=== PATIENT | female | born 2000 | race African-American/Black ===

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

== ENCOUNTER → 2020-04-29 14:51 | Outpatient (CLI) | payer OTHER, SELFPAY ==
[2020-04-26 12:42] LABS: Erythrocyte Sedimentation Rate 13 mm/hr (0-20)
[2020-04-26 12:44] LABS: Absolute Neutrophil Count 4.9 X10^3/uL (2.0-7.7); Basophil# 0.05 X10^3/uL; Basophil% 0.6 % (0-1); Eosinophils% 2.5 % (0-5); Hematocrit 41.9 % (37-47); Hemoglobin 14.5 g/dL (12.0-15.0); Lymphocyte % 29.7 % (19-41); Mean Corp Hgb Conc 34.6 g/dL (32-36); Mean Corpuscular Hgb 30.2 pg (27.0-32.0); Mean Corpuscular Volume 87.3 fL (81-99); Mean Platelet Vol. 10.4 fl (6.2-12.0); Monocyte# 0.45 X10^3/uL; Monocyte% 5.6 % (0-10); NRBC Flagged by Analyzer 0 % (0-5); Neutrophil # 4.93 X10^3/uL (2.7-7.7); Neutrophil % 61.1 % (47-70); Platelet Count 304 K/mm3 (150-450); RBC Distribution Width CV 12.7 % (11.6-14.6); RBC Distribution Width SD 39.5 fl (35.1-43.9); White Blood Count 8.1 K/mm3 (4.4-11.0)
[2020-04-26 13:11] LABS: Vitamin B12 327 pg/mL (211-911); Vitamin D,25 Hydroxy 11.2 ng/mL
[2020-04-26 13:21] LABS: ALB/GLOB Ratio 0.8 RATIO (0.9-2.4); AST(SGOT) 15 U/L (15-37); Alanine Aminotransfer ALT/SGPT 18 U/L (13-56); Albumin, Serum 3.3 g/dL (3.2-5.0); Alkaline Phosphatase 118 U/L (45-117); Anion Gap 8 (5-15); BUN 9 mg/dL (7-18); BUN/Creat Ratio 13.1 RATIO (10-20); Calcium,Total 8.4 mg/dL (8.5-10.1); Chloride 103 mmol/L (98-107); Creatinine, Serum 0.69 mg/dL (0.55-1.02); EST Glomerular Filtration Rate 114 mL/min (>60); Est Glom Filt Rate - Afr Amer 138 mL/min (>60); Ferritin 13 ng/mL (8-252); Glucose 89 mg/dL (74-106); Iron 50 ug/dL (50-170); Iron Binding Capacity,Total 462 ug/dL (250-450); PERCENT IRON SATURATION 10.8 % (15.0-55.0); Potassium 3.8 mmol/L (3.5-5.1); Protein, Total 7.3 g/dL (6.4-8.2); Sodium Level 137 mmol/L (136-145)
--- NOTE | 2020-04-29 15:02 | CT_ITS ---
STUDY: CT ABDOMEN AND PELVIS WITH CONTRAST REASON FOR EXAM: Female, 20 years old. ABD PAIN, CHRONS RADIATION DOSAGE (If Supplied By Facility): CTDIvol = ( 14.85 ) mGy, DLP = ( 809.29 ) mGycm TECHNIQUE: Transaxial images were obtained from the dome of the diaphragm to the symphysis pubis with oral contrast. Oral and amp; IV Readi-CAT and amp; 100mL Isovue-370 was administered. Sagittal and coronal images were reconstructed. Individualized dose optimization techniques were used for this CT. COMPARISON: None. FINDINGS: The visualized lung bases are unremarkable. The visualized portions of the heart are within normal limits. Normal liver. Normal gallbladder and extrahepatic biliary system. Normal spleen. Normal pancreas. Normal bilateral adrenal glands. Normal right kidney. Normal left kidney. Normal visualized stomach. Wall thickening of the terminal ileum with stranding of surrounding fat consistent with known Crohn''s disease. Mild dilatation of the ileum just proximal to the inflamed segment consistent with pseudoobstruction. No loculated fluid collection to suggest abscess. No pneumoperitoneum to suggest perforation. Normal colon. The appendix is visualized and appears normal. Normal abdominal aorta. Normal inferior vena cava. Normal retroperitoneum. Normal urinary bladder. Normal abdominal wall. Normal osseous structures. CT/Abdomen/Pelvis WITH Contrast IMPRESSION: Known Crohn''s disease with the inflammation of the distal ileum with pseudoobstruction. No abscess or perforation. Electronically Signed: Daniel Hamilton MD at 17:16 EST Tel , Service support ,
== END ==
PROVIDERS: PCP Pediatrics; Referring Provider Internal Medicine Gastroenterology; Visit Provider Internal Medicine Gastroenterology
DX: K50.90 Crohn's disease, unspecified, without complications (principal); R14.0 Abdominal distension (gaseous); R19.4 Change in bowel habit; R19.7 Diarrhea, unspecified
CPT/HCPCS: 36415; 74177; 80053; 82306; 82607; 82728; 82746; 83540; 83550; 85025; 85652; 86140; Q9967

== ENCOUNTER → 2020-06-04 16:10 | Outpatient (CLI) | payer OTHER, SELFPAY ==
[2016-10-09 00:32] VITALS: BMI 21.6
--- NOTE | 2020-06-04 17:15 | RAD_ITS ---
HISTORY: cough, hx asthma. EXAM: XR Chest 2 Views: COMPARISON: None FINDINGS: # of images incl. paperwork: 2 Lungs are clear. Heart is not enlarged. No acute osseous pathology perceived. Pulmonary vascularity is distinct. No effusions. RAD/Chest PA and Lateral IMPRESSION: Normal. at 0656 Reported and signed by: Thierno Candelario MD Electronically Signed: Thierno Candelario MD at 6:55 EST Tel , Service support ,
[2020-06-07 09:46] LABS: Hepatitis B Surface Antibody Reactive; Hepatitis B Surface Antigen Non-Reactive (Nonreactive)
== END ==
PROVIDERS: PCP Pediatrics
DX: D64.9 Anemia, unspecified (principal); E73.9 Lactose intolerance, unspecified; K50.118 Crohn's disease of large intestine with other complication; R19.5 Other fecal abnormalities; R05 Cough
CPT/HCPCS: 36415; 71046; 86706; 87340

== ENCOUNTER → 2020-07-26 12:12 | Outpatient (CLI) | payer OTHER, SELFPAY ==
[2016-10-09 00:32] VITALS: BMI 21.6
[2020-07-26 14:16] LABS: Vitamin B12 304 pg/mL (211-911); Vitamin D,25 Hydroxy 32.7 ng/mL
[2020-07-26 14:26] LABS: Ferritin 8 ng/mL (8-252); Iron 108 ug/dL (50-170); Iron Binding Capacity,Total 549 ug/dL (250-450)
[2020-08-06 15:20] LABS: Hepatitis A AB, Total Negative (Negative); Vitamin A, Retinol 54.9 ug/dL (18.9-57.3)
== END ==
PROVIDERS: PCP Pediatrics; Referring Provider Internal Medicine Gastroenterology; Visit Provider Internal Medicine Gastroenterology
DX: K51.918 Ulcerative colitis, unspecified with other complication (principal); D64.9 Anemia, unspecified; E55.9 Vitamin D deficiency, unspecified
CPT/HCPCS: 36415; 82306; 82607; 82728; 82746; 83540; 83550; 84590; 86708

== ENCOUNTER → 2021-09-02 | Outpatient (CLI) | payer OTHER, SELFPAY ==
--- NOTE | 2021-09-02 16:36 | RAD_ITS ---
STUDY: PA AND LATERAL CHEST X-RAY SERIES OF 1634 HOURS ON 09/02/2021 REASON FOR EXAM: 21-year-old female with Crohn''s disease and has developed a cough. TECHNIQUE: A standard PA and lateral chest x-rays series was performed per protocol. COMPARISON: 06/04/2020. FINDINGS: The osseous and surrounding soft tissue structures, heart, aren, diaphragm, and lung are normal appearance. There is no evidence of a pneumonia, pneumonitis or bronchitis. There is no other evidence of active cardiopulmonary disease. There is no evidence of significant interval change since the previous study of 06/04/2020. RAD/Chest PA and Lateral IMPRESSION: 1. No active cardiopulmonary disease. 2. No pneumonia, pneumonitis or bronchitis. 3. No interval change since the previous study of 06/04/2020. Electronically Signed: Casey Hatfield MD at 17:59 EDT ,
[2021-09-02 17:09] LABS: Absolute Lymphocyte Count 3.31 X10^3/uL (0.83-4.51); Absolute Neutrophil Count 4.2 X10^3/uL (2.0-7.7); Basophil# 0.03 X10^3/uL; Basophil% 0.4 % (0-1); Eosinophil# 0.12 X10^3/uL; Eosinophils% 1.5 % (0-5); Hematocrit 45.4 % (37-47); Hemoglobin 15.9 g/dL (12.0-15.0); Lymphocyte # 3.31 X10^3/ul (0.83-4.51); Lymphocyte % 41.1 % (19-41); Mean Corpuscular Hgb 30.9 pg (27.0-32.0); Mean Corpuscular Volume 88.3 fL (81-99); Mean Platelet Vol. 11.5 fl (6.2-12.0); Monocyte# 0.36 X10^3/uL; Monocyte% 4.5 % (0-10); NRBC Flagged by Analyzer 0 % (0-5); Neutrophil # 4.23 X10^3/uL (2.7-7.7); Neutrophil % 52.4 % (47-70); Platelet Count 235 K/mm3 (150-450); RBC Distribution Width SD 41.9 fl (35.1-43.9); Red Blood Count 5.14 M/mm3 (4.2-5.4); White Blood Count 8.1 K/mm3 (4.4-11.0)
[2021-09-02 17:32] LABS: ALB/GLOB Ratio 1.4 RATIO (0.9-2.4); AST(SGOT) 18 U/L (15-37); Alanine Aminotransfer ALT/SGPT 20 U/L (13-56); Albumin, Serum 4.4 g/dL (3.2-5.0); Alkaline Phosphatase 81 U/L (45-117); Anion Gap 6 (5-15); BUN 8 mg/dL (7-18); BUN/Creat Ratio 10.9 RATIO (10-20); Calcium,Total 8.9 mg/dL (8.5-10.1); Chloride 102 mmol/L (98-107); Creatinine, Serum 0.73 mg/dL (0.55-1.02); EST Glomerular Filtration Rate 105 mL/min (>60); Est Glom Filt Rate - Afr Amer 127 mL/min (>60); Globulin 3.2 g/dL (2.2-4.2); Glucose 89 mg/dL (74-106); Iron 89 ug/dL (50-170); Iron Binding Capacity,Total 414 ug/dL (250-450); Potassium 3.8 mmol/L (3.5-5.1); Protein, Total 7.6 g/dL (6.4-8.2); Sodium Level 137 mmol/L (136-145)
[2021-09-05 08:58] LABS: Hepatitis B Surface Antibody Non-Reactive
[2021-09-05 09:47] LABS: Hepatitis A AB, Total Negative (Negative)
== END | disposition home or self-care (01) ==
LOC: LAB.FUTURE 10:51 → LAB 16:12
PROVIDERS: PCP Pediatrics; Visit Provider Internal Medicine Gastroenterology
DX: K50.819 Crohn's disease of both small and large intestine with unspecified complications (principal); E55.9 Vitamin D deficiency, unspecified; R05.9 Cough, unspecified
CPT/HCPCS: 36415; 71046; 80053; 83540; 83550; 85025; 86706; 86708

== ENCOUNTER 2021-09-13 13:00 | Emergency (ER) | payer OTHER, SELFPAY ==
[2021-09-13 13:01] VITALS: BP 115/82; PULSE 67; RESP 18; TEMP 36.2; O2SAT 98; BMI 22.1
[2021-09-13 13:36] LABS: Absolute Lymphocyte Count 2.42 X10^3/uL (0.83-4.51); Absolute Neutrophil Count 2.3 X10^3/uL (2.0-7.7); Basophil# 0.03 X10^3/uL; Basophil% 0.6 % (0-1); Eosinophil# 0.06 X10^3/uL; Eosinophils% 1.2 % (0-5); Hemoglobin 15.7 g/dL (12.0-15.0); Lymphocyte # 2.42 X10^3/ul (0.83-4.51); Lymphocyte % 47.2 % (19-41); Mean Corp Hgb Conc 35.7 g/dL (32-36); Mean Corpuscular Hgb 31.2 pg (27.0-32.0); Mean Corpuscular Volume 87.3 fL (81-99); Mean Platelet Vol. 11.4 fl (6.2-12.0); Monocyte# 0.28 X10^3/uL; Monocyte% 5.5 % (0-10); NRBC Flagged by Analyzer 0 % (0-5); Neutrophil # 2.34 X10^3/uL (2.7-7.7); Neutrophil % 45.5 % (47-70); Platelet Count 207 K/mm3 (150-450); RBC Distribution Width CV 12.6 % (11.6-14.6); RBC Distribution Width SD 39.5 fl (35.1-43.9); Red Blood Count 5.04 M/mm3 (4.2-5.4); White Blood Count 5.1 K/mm3 (4.4-11.0)
[2021-09-13 13:38] LABS: Internal QC Validated? YES +Cl - CLEAR BKGD; Pregnancy, Serum, hCG Quali. NEGATIVE Negative
[2021-09-13 13:42] LABS: Anion Gap 7 (5-15); BUN 13 mg/dL (7-18); BUN/Creat Ratio 17.4 RATIO (10-20); Calcium,Total 9.2 mg/dL (8.5-10.1); Chloride 105 mmol/L (98-107); Creatinine, Serum 0.75 mg/dL (0.55-1.02); EST Glomerular Filtration Rate 102 mL/min (>60); Est Glom Filt Rate - Afr Amer 124 mL/min (>60); Estimated Creatinine Clearance 110.14 ml/min; Glucose 89 mg/dL (74-106); Potassium 3.9 mmol/L (3.5-5.1); Sodium Level 138 mmol/L (136-145)
--- NOTE | 2021-09-13 13:59 | CT_ITS ---
STUDY: CT ABDOMEN AND PELVIS WITH CONTRAST REASON FOR EXAM: Female, 21 years old. abd pain -- IV PO Contrast RADIATION DOSAGE (If Supplied By Facility): CTDIvol = ( 10.45 ) mGy, DLP = ( 511.23 ) mGycm TECHNIQUE: Transaxial images were obtained from the dome of the diaphragm to the symphysis pubis without oral contrast. Oral and amp; IV Gastrografin and amp; 100mL Isovue-300 was administered. Sagittal and coronal images were reconstructed. Individualized dose optimization techniques were used for this CT. COMPARISON: 04/29/2020 FINDINGS: The visualized lung bases are unremarkable. The visualized portions of the heart are within normal limits. Mild nonspecific fatty infiltrated liver with focal fatty sparing in left lobe.. Contracted thick-walled gallbladder without calcified stones possibly physiologic. If concern for gallbladder disease ultrasound recommended. Normal spleen. Normal pancreas. Normal bilateral adrenal glands. Normal right kidney. Normal left kidney. Normal visualized stomach. No evidence for small bowel obstruction. There is diffuse concentric thickening of the larsen of the distal ileum consistent with ileitis of Crohn''s disease. Submucosal fat deposition within the cecum and proximal ascending colon which also may be due to Crohn''s disease.. The appendix is visualized and appears normal. Normal abdominal aorta. Normal inferior vena cava. Normal retroperitoneum. Normal urinary bladder. Normal abdominal wall. Normal osseous structures. CT/Abdomen/Pelvis WITH Contrast IMPRESSION: Findings consistent with terminal ileitis due to known Crohn''s disease. No evidence for small bowel obstruction Contracted thick-walled gallbladder without calcified stones possibly physiologic however if concern for gallbladder disease ultrasound recommended. Electronically Signed: Diogenes López MD at 16:58 EDT ,
--- NOTE | 2021-09-13 14:00 | EDS_ITS ---
HPI History of Present Illness Chief Complaint: Abd Pain Informant: patient Onset/Context/Timing Onset: Today Narrative Narrative: Patient presents secondary to abdominal pain and nausea. She is a history of Crohn's disease and follows with a GI doctor in [place]. She has been on Humira for about a year. She reports increasing intermittent abdominal pain for the last several weeks with intermittent nausea. No fever or chills. She called her GI doctor who recommended she come in for lab work and a CT scan. [facility] Medical History Crohn's disease Home Medications Mesalamine 2 tab PO BID 10/09/16 [History Last Taken Unknown] amoxicillin 500 mg PO Q8H #30 capsule 10/09/16 [Rx Last Taken Unknown] cetirizine [Zyrtec] 10 mg PO DAILY 10/09/16 [History Last Taken Unknown] Allergy/AdvReac Type Severity Reaction Status Date / Time Latex, Natural Rubber Allergy Rash Verified 09/13/21 13:04 environmental Allergy Other Uncoded 09/13/21 13:04 Social History Smoking Status: Never smoker ROS ROS ED Constitutional Constitutional ED: Denies chills or fever(s) Eyes Eyes: Denies change in vision ENT ENT ED: Denies sore throat Cardiovascular Cardiovascular: Denies chest pain Respiratory/Chest Respiratory/Chest: Denies cough or dyspnea Gastrointestinal Gastrointestinal: Denies abdominal pain, nausea or vomiting Genitourinary Genitourinary ED: Denies dysuria Musculoskeletal Musculoskeletal: Denies back pain or neck pain Integumentary Denies rash Neurologic Neurologic: Denies headache(s) or weakness Allergic/Immunologic Allergic/Immunologic ED: Denies urticaria EXAM Physical Exam Const Vital Signs: 09/13/21 13:01 09/13/21 15:43 Temperature 97.2 F L Temperature Source Temporal Pulse Rate 67 Respiratory Rate 18 Blood Pressure 115/82 H 110/70 Blood Pressure Mean 93 83 Pulse Ox 98 100 Oxygen Delivery Method Room Air Room Air Positive well nourished and well developed General Appearance ED: well developed HEENT Reports moist mucous membranes Eyes PERRL and EOMs intact bilaterally Neck no lymphadenopathy and supple Chest Wall inspection of chest normal and palpation of chest normal Resp normal respiratory effort and clear to auscultation bilaterally Cardio regular rate and regular rhythm GI normal to inspection, nondistended, normoactive bowel sounds and non-tender Palpation: soft Extremity normal to inspection Neuro oriented x3 Sensorium / Orientation: alert Psych mental status grossly normal Skin no rashes or lesions noted MDM MDM MDM Narrative Medical decision making narrative: Lab work obtained via nursing protocol. At the time of my examination CT scan is added. Lab Data Attestation: I reviewed the patient's lab results. Labs: Laboratory Results - last 24 hr 09/13/21 09/13/21 09/13/21 13:23 13:23 13:23 WBC 5.1 RBC 5.04 Hgb 15.7 H Hct 44.0 MCV 87.3 MCH 31.2 MCHC 35.7 RDW Std Deviation 39.5 RDW Coeff of Jinny 12.6 Plt Count 207 MPV 11.4 Immature Gran % (Auto) 0.000 Neut % (Auto) 45.5 L Lymph % (Auto) 47.2 H Hutch[place] % (Auto) 5.5 Eos % (Auto) 1.2 Baso % (Auto) 0.6 Absolute Neuts (auto) 2.3 Absolute Lymphs (auto) 2.42 Nucleated RBC % 0 Sodium 138 Potassium 3.9 Chloride 105 Carbon Dioxide 26.0 Anion Gap 7 BUN 13 Creatinine 0.75 Estim Creat Clear Calc 110.14 Est GFR (MDRD) Af Amer 124 Est GFR (MDRD) Non-Af 102 BUN/Creatinine Ratio 17.4 Glucose 89 Calcium 9.2 Serum , Qual NEGATIVE Urine Color Urine Clarity Urine pH Ur Specific [place] Urine Protein Urine Glucose (UA) Urine Ketones Urine Occult Blood Urine Nitrite Urine Bilirubin Urine Urobilinogen Ur Leukocyte Esterase Urine RBC Urine WBC Ur Squamous Epith Cells Urine Bacteria Urine Mucus 09/13/21 14:25 WBC RBC Hgb Hct MCV MCH MCHC RDW Std Deviation RDW Coeff of Jinny Plt Count MPV Immature Gran % (Auto) Neut % (Auto) Lymph % (Auto) [place] % (Auto) Eos % (Auto) Baso % (Auto) Absolute Neuts (auto) Absolute Lymphs (auto) Nucleated RBC % Sodium Potassium Chloride Carbon Dioxide Anion Gap BUN Creatinine Estim Creat Clear Calc Est GFR (MDRD) Af Amer Est GFR (MDRD) Non-Af BUN/Creatinine Ratio Glucose Calcium Serum , Qual Urine Color Yellow Urine Clarity Clear Urine pH 7.0 Ur Specific [place] 1.010 Urine Protein Negative Urine Glucose (UA) Normal Urine Ketones Negative Urine Occult Blood Negative Urine Nitrite Negative Urine Bilirubin Negative Urine Urobilinogen Normal Ur Leukocyte Esterase 25 H Urine RBC 0 SEEN Urine WBC 0-5 SEEN Ur Squamous Epith Cells 0-5 SEEN Urine Bacteria 4+ Urine Mucus 0 SEEN Radiography Diagnostic Testing: Clinical Impression(s) from Imaging Studies Abdomen/Pelvis CT 09/13/21 13:59 IMPRESSION: Findings consistent with terminal ileitis due to known Crohn''s disease. No evidence for small bowel obstruction Contracted thick-walled gallbladder without calcified stones possibly physiologic however if concern for gallbladder disease ultrasound recommended. Electronically Signed: Diogenes López MD at 16:58 EDT , Treatment and Re-Evaluation Narrative: Lab work unremarkable. Urinalysis shows 4+ bacteria but no sign of i nfection otherwise. CT scan with contrast is obtained and reveals evidence of terminal ileitis due to known Crohn's disease. No evidence for obstruction. They do comment about a thick-walled gallbladder that is contracted, however patient has no tenderness in this area. I did speak with the patient's GI doctor, Dr. Caraballo. He did not wish for any other medications to be given at this time. Continue her current regimen and follow-up in the office. Discharge Plan Triage Chief Complaint: Abd Pain ED Provider: Simran Wynne Dx/Rx/DC Orders Clinical Impression: Crohn's disease, Terminal ileitis Instructions: ED Crohn's Disease Prescriptions: No Action cetirizine [Zyrtec] 10 MG capsule 10 mg PO DAILY RF: 0 Mesalamine 800 MG Tablet.Dr 2 tab PO BID RF: 0 amoxicillin 500 MG capsule 500 mg PO Q8H Qty: 30 RF: 0 Primary Care Provider: Care Physician,No Primary Referrals: Care Physician,No Primary [Primary Care Provider] - Activity Restrictions/Additional Instructions: Follow-up with Dr. Caraballo as planned. I did speak with him this evening. He does not wish for any medication changes at this time. Disposition Disposition: Home, Self Care
[2021-09-13 15:00] LABS: Mucous, Urine 0 SEEN /hpf (<or=2+); Red Blood Cells-Urine 0 SEEN /hpf (0-5)
[2021-09-13 15:01] LABS: Color, Urine Yellow (Yellow); Glucose, Dipstick Normal (Normal); Ketone-Dipstick Negative (Negative); Leukocyte Esterase-Dipstick 25 /ul (Negative); Nitrite-Dipstick Negative (Negative); Occult Blood-Urine Negative /ul (Negative); Protein-Dipstick Negative (Negative); Urine Bilirubin Dipstick Negative (Negative); Urine Clarity Clear (Clear); Urine Urobilinogen Normal (Normal)
[2021-09-13 15:43] VITALS: BP 110/70; O2SAT 100
[2021-09-13 15:53] LABS: Bacteria 4+ /hpf (None Seen); Squamous Epithelial Cells - UA 0-5 SEEN /hpf (5-10); White Blood Cells 0-5 SEEN /hpf (0-5)
--- NOTE | 2021-09-13 17:36 | CM.ED ---
Social Work Note SW reviewed chart, pt has no PCP. SW attempted to meet with pt. Pt has already been discharged. Angie Galdamez JOINERY SETTER OUT, SQL DEVELOPER
== END 2021-09-13 17:36 | disposition home or self-care (01) ==
PROVIDERS: Emergency Provider Emergency Medicine; Visit Provider Emergency Medicine
DX: K50.00 Crohn's disease of small intestine without complications (principal)
CPT/HCPCS: 74177; 80048; 81001; 84703; 85025; 99282; Q9967; A4216

== ENCOUNTER 2022-08-17 11:08 | Emergency (ER) | payer OTHER, SELFPAY ==
[2022-08-17 11:09] VITALS: BP 114/67; PULSE 67; RESP 16; TEMP 37.4; O2SAT 98; BMI 22.0
--- NOTE | 2022-08-17 11:31 | ED.VIS.GI ---
HPI HPI - GI History of Present Illness Chief Complaint: Abd Pain Informant: patient Narrative Narrative: This patient has Crohn's disease. She presents with nausea vomiting diarrhea. This really started this morning. She had some dry heaves and brought up just a small amount of what she describes as stomach acid. She also had watery diarrhea. No blood in either 1 of these. She states she has had nausea for about the past year but really does not normally vomit like this. She does not usually have diarrhea despite having Crohn's. She is on Humira. She is transitioning from a perinatal specialist in [place] to Dr. Almanzar locally. Last EGD was about 2 months ago. Last colonoscopy was over a year ago. One of her concerns is that she does not develop an obstruction. She has not had 1. She has no history of abdominal surgery. She sometimes gets pain down the left lower quadrant but she is not actually having pain now. No fevers or chills. PFSH PFSH Medical History Anxiety and depression Asthma Atopic eczema Crohn's disease Idiopathic colitis Home Medications cetirizine 10 mg capsule (Zyrtec) 10 mg PO DAILY 10/09/16 [History Last Taken Unknown] adalimumab 40 mg/0.8 mL subcutaneous pen kit (Humira Pen) See Rx Instructions subcut .COMPLEX 08/15/22 [History Last Taken Unknown] bupropion HCl 75 mg tablet 75 mg PO BID 08/15/22 [History Last Taken Unknown] escitalopram oxalate 10 mg tablet (Lexapro) 10 mg PO DAILY 08/15/22 [History Last Taken Unknown] fluticasone propionate 50 mcg/actuation nasal spray,suspension 1 spray intranasal DAILY 08/15/22 [History Last Taken Unknown] mesalamine 0.375 gram capsule,extended release 24 hr 1.5 g PO DAILY 08/15/22 [History Last Taken Unknown] ondansetron 4 mg disintegrating tablet 4 mg PO Q8H PRN PRN Nausea #10 tabs 08/17/22 [Rx Last Taken Unknown] Allergy/AdvReac Type Severity Reaction Status Date / Time Environmental Allergies: Allergy NEEDS Verified 08/17/22 11:11 Uncoded FOLLOW-UP Latex, Natural Rubber Allergy Rash Verified 08/17/22 11:11 Family History Sister PCOS (polycystic ovarian syndrome) Surgical History H/O tympanostomy Social History Smoking Status: Never smoker alcohol intake: never ROS ROS ED ROS Narrative A complete review of systems was performed and is negative except as documented in the history of present illness. Some specific details below. Constitutional: No recent fevers or chills. EYE: No visual complaints or pain. ENT: No difficulty swallowing. No swelling. No pain. Her appetite has not been good but she still has been able to eat and drink. She has been drinking plenty of fluids. CV: No chest pain or palpitations. Respiratory: No dyspnea. No hemoptysis. No difficulty taking breaths. GI: Please see history of present illness. : No frequency dysuria or hematuria. No urinary symptoms at all. Musculoskeletal: No recent trauma. No pains. Skin: No rash. Nondiaphoretic. Neuro: No weakness or numbness. Endocrine: No polyuria or polydipsia. EXAM Physical Exam Narrative Exam Narrative: CONSTITUTIONAL: Patient is nontoxic in appearance. The patient looks comfortable. Sitting quietly in the bed carries on normal conversation. HEENT: No notable trauma. Mucous membranes moist. EYES: No conjunctival injection. No proptosis. CARDIOVASCULAR: Regular rate. Regular rhythm. No notable murmur. No JVD. RESPIRATORY: No respiratory distress. Breathing is unlabored. No wheezes. No rhonchi. No rales. No pain with a deep breath. GASTROINTESTINAL: Not distended. Bowel sounds are normal. They are not increased or decreased. No tenderness. No guarding. No rebound. No palpable mass. No bruit. Clinically no indication of obstruction on exam. GENITOURINARY: No tenderness over the bladder. No CVA tenderness. MUSCULOSKELETAL: Atraumatic. No peripheral edema. No cord. No tenderness along the deep venous system. No asymmetry. NEUROLOGICAL: Patient is alert and appropriate. No focal deficit noted. SKIN: No noted rashes. No diaphoresis. PSYCHIATRIC: Patient is calm. Mood is appropriate. Const Vital Signs: 08/17/22 11:09 08/17/22 13:09 Temperature 99.4 F H Temperature Source Temporal Pulse Rate 67 84 Respiratory Rate 16 16 Blood Pressure 114/67 112/62 Blood Pressure Mean 82 78 Pulse Ox 98 99 Oxygen Delivery Method Room Air Room Air MDM MDM MDM Narrative Medical decision making narrative: Independent interpretation of the patient's 4 view abdominal series shows no acute process. Final reading by radiology is similar. Patient has minimal elevation of the hemoglobin which may be some mild dehydration. She is given IV fluids. White count is normal. Electrolytes are overall normal. Liver function tests do show elevated bilirubin but other tests are unchanged. This is a little bit trending up slowly. This does need to be followed up but I do not think requires admission or treatment at this point. This may even be medication related. Patient is feeling well. I do not think there is any indication of obstruction. This may even be a viral issue that she has as she has not been having a lot of diarrhea. She has not had blood in the stool. She states she is on Nexium for the chronic nausea but does not take it because she has OCD and she does not want to take meds. I encouraged her to maybe take this medicine as it might help some chronic nausea by reducing acid irritation. I will write for some Zofran that can be used on a as needed basis. She will follow-up with Dr. Almanzar as scheduled as she is already contacted his office and having the records transferred to him for follow-up. We discussed that the patient develops pain (which she does not currently have), or recurrent vomiting fevers blood in the stool she may need to return. Lab Data Attestation: I reviewed the patient's lab results. Labs: Laboratory Results - last 24 hr 08/17/22 08/17/22 08/17/22 11:58 11:58 11:58 WBC 8.4 RBC 5.19 Hgb 16.4 H Hct 46.6 MCV 89.8 MCH 31.6 MCHC 35.2 RDW Std Deviation 39.2 RDW Coeff of Jinny 12.0 Plt Count 183 MPV 10.5 Immature Gran % (Auto) 0.200 Neut % (Auto) 87.2 H Lymph % (Auto) 8.8 L [place] % (Auto) 3.0 Eos % (Auto) 0.7 Baso % (Auto) 0.1 Absolute Neuts (auto) 7.3 Absolute Lymphs (auto) 0.74 L Nucleated RBC % 0 Sodium 134 L Potassium 3.5 Chloride 103 Carbon Dioxide 27.0 Anion Gap 4 L BUN 11 Creatinine 0.83 Estim Creat Clear Calc 98.68 Est GFR (MDRD) Af Amer 109 Est GFR (MDRD) Non-Af 90 BUN/Creatinine Ratio 13.3 Glucose 92 Calcium 9.3 Total Bilirubin 2.90 H AST 19 ALT 32 Alkaline Phosphatase 82 Total Protein 8.9 H Albumin 5.0 Globulin 3.9 Albumin/Globulin Ratio 1.3 Serum , Qual NEGATIVE Urine Color Urine Clarity Urine pH Ur Specific [place] Urine Protein Urine Glucose (UA) Urine Ketones Urine Occult Blood Urine Nitrite Urine Bilirubin Urine Urobilinogen Ur Leukocyte Esterase Urine RBC Urine WBC Ur Squamous Epith Cells Ur Transition Epith Cell Urine Bacteria Urine Mucus 08/17/22 12:00 WBC RBC Hgb Hct MCV MCH MCHC RDW Std Deviation RDW Coeff of Jinny Plt Count MPV Immature Gran % (Auto) Neut % (Auto) Lymph % (Auto) [place] % (Auto) Eos % (Auto) Baso % (Auto) Absolute Neuts (auto) Absolute Lymphs (auto) Nucleated RBC % Sodium Potassium Chloride Carbon Dioxide Anion Gap BUN Creatinine Estim Creat Clear Calc Est GFR (MDRD) Af Amer Est GFR (MDRD) Non-Af BUN/Creatinine Ratio Glucose Calcium Total Bilirubin AST ALT Alkaline Phosphatase Total Protein Albumin Globulin Albumin/Globulin Ratio Serum , Qual Urine Color Yellow Urine Clarity Sl. Cloudy Urine pH 5.0 Ur Specific [place] 1.015 Urine Protein Negative Urine Glucose (UA) Normal Urine Ketones 5 H Urine Occult Blood Negative Urine Nitrite Negative Urine Bilirubin 1 H Urine Urobilinogen 1 H Ur Leukocyte Esterase Negative Urine RBC 0 SEEN Urine WBC 0 SEEN Ur Squamous Epith Cells 0-5 SEEN Ur Transition Epith Cell 0 SEEN Urine Bacteria RARE Urine Mucus RARE Radiography Diagnostic Testing: Clinical Impression(s) from Imaging Studies Acute Abdomen Series 08/17/22 12:18 IMPRESSION: Moderate amount of fecal material is seen in the colon. Electronically Signed: Fran Garrett MD at 12:45 EDT , Discharge Plan Triage Chief Complaint: Abd Pain ED Provider: Shadi Arriola Dx/Rx/DC Orders Clinical Impression: Nausea vomiting and diarrhea, History of Crohn's disease, Chronic nausea Instructions: ED Crohn's Disease Prescriptions: New ondansetron [ondansetron] 4 mg tablet,disintegrating 4 mg PO Q8H PRN PRN (Reason: Nausea) Qty: 10 0RF No Action bupropion HCl 75 mg tablet 75 mg PO BID Rx Instructions: administer 6 hours apart fluticasone propionate 50 mcg/actuation spray,suspension 1 spray intranasal DAILY Rx Instructions: administer into each nostril escitalopram oxalate [Lexapro] 10 mg tablet 10 mg PO DAILY Humira Pen 40 mg/0.8 mL pen injector kit See Rx Instructions subcut .COMPLEX Rx Instructions: inject one - 40 mg/0.8 mL pen every 2 weeks subcut mesalamine 0.375 gram capsule,extended release 24hr 1.5 g PO DAILY Zyrtec 10 MG capsule 10 mg PO DAILY Primary Care Provider: Mey Faustin Referrals: Otf Almanzar DO [Med Staff - Active Staff] - As soon as possible Mey Faustin MD [Primary Care Provider] - Disposition Disposition: Home, Self Care
[2022-08-17] MEDS: 0.9% Normal Saline 1,000 ML 1000 ML IV (12:06)
[2022-08-17 12:08] LABS: Absolute Lymphocyte Count 0.74 X10^3/uL (0.83-4.51); Absolute Neutrophil Count 7.3 X10^3/uL (2.0-7.7); Basophil# 0.01 X10^3/uL; Basophil% 0.1 % (0-1); Eosinophil# 0.06 X10^3/uL; Eosinophils% 0.7 % (0-5); Hematocrit 46.6 % (37-47); Hemoglobin 16.4 g/dL (12.0-15.0); Lymphocyte # 0.74 X10^3/ul (0.83-4.51); Lymphocyte % 8.8 % (19-41); Mean Corp Hgb Conc 35.2 g/dL (32-36); Mean Corpuscular Hgb 31.6 pg (27.0-32.0); Mean Corpuscular Volume 89.8 fL (81-99); Mean Platelet Vol. 10.5 fl (6.2-12.0); Monocyte# 0.25 X10^3/uL; NRBC Flagged by Analyzer 0 % (0-5); Neutrophil # 7.29 X10^3/uL (2.7-7.7); Neutrophil % 87.2 % (47-70); Platelet Count 183 K/mm3 (150-450); RBC Distribution Width SD 39.2 fl (35.1-43.9); Red Blood Count 5.19 M/mm3 (4.2-5.4); White Blood Count 8.4 K/mm3 (4.4-11.0)
[2022-08-17 12:14] LABS: Red Blood Cells-Urine 0 SEEN /hpf (0-5); White Blood Cells 0 SEEN /hpf (0-5)
[2022-08-17 12:16] LABS: Color, Urine Yellow (Yellow); Glucose, Dipstick Normal (Normal); Ketone-Dipstick 5 mg/dl (Negative); Leukocyte Esterase-Dipstick Negative /ul (Negative); Nitrite-Dipstick Negative (Negative); Occult Blood-Urine Negative /ul (Negative); Protein-Dipstick Negative (Negative); Specific Gravity, Urine 1.015 (1.002-1.030); Urine Clarity Sl. Cloudy (Clear); Urine Urobilinogen 1 mg/dl (Normal)
--- NOTE | 2022-08-17 12:18 | RAD_ITS ---
STUDY: X-RAY - ACUTE ABDOMINAL SERIES REASON FOR EXAM: Female, 22 years old. N V D TECHNIQUE: Single view of the chest. Supine, and erect view(s) of the abdomen were obtained. COMPARISON: Comparison is made with prior chest radiograph dated September 02, 2021. FINDINGS: The lungs are clear and expanded. Normal size heart. Normal mediastinum and aren. Normal visualized pulmonary arteries. Normal visualized aortic arch and descending thoracic aorta. There is a moderate amount of colonic fecal material. The soft tissue structures of the abdomen and pelvis are unremarkable. Normal visualized osseous structures. RAD/Acute Abdomen Inc Chest IMPRESSION: Moderate amount of fecal material is seen in the colon. Electronically Signed: Fran Garrett MD at 12:45 EDT ,
[2022-08-17 12:19] LABS: Urine Bilirubin Dipstick 1 mg/dL (Negative)
[2022-08-17 12:22] LABS: Bacteria RARE /hpf (None Seen); Mucous, Urine RARE /hpf (<or=2+); Squamous Epithelial Cells - UA 0-5 SEEN /hpf (5-10); Transitional Epithelial - Ur 0 SEEN /hpf (0-5)
[2022-08-17 12:23] LABS: ALB/GLOB Ratio 1.3 RATIO (0.9-2.4); AST(SGOT) 19 U/L (15-37); Alanine Aminotransfer ALT/SGPT 32 U/L (13-56); Alkaline Phosphatase 82 U/L (45-117); Anion Gap 4 (5-15); BUN 11 mg/dL (7-18); BUN/Creat Ratio 13.3 RATIO (10-20); Calcium,Total 9.3 mg/dL (8.5-10.1); Chloride 103 mmol/L (98-107); Creatinine, Serum 0.83 mg/dL (0.55-1.02); EST Glomerular Filtration Rate 90 mL/min (>60); Est Glom Filt Rate - Afr Amer 109 mL/min (>60); Estimated Creatinine Clearance 98.68 ml/min; Globulin 3.9 g/dL (2.2-4.2); Glucose 92 mg/dL (74-106); Potassium 3.5 mmol/L (3.5-5.1); Protein, Total 8.9 g/dL (6.4-8.2); Sodium Level 134 mmol/L (136-145)
[2022-08-17 12:36] LABS: Internal QC Validated? YES +Cl - CLEAR BKGD; Pregnancy, Serum, hCG Quali. NEGATIVE Negative
[2022-08-17 13:09] VITALS: BP 112/62; PULSE 84; RESP 16; O2SAT 99
== END 2022-08-17 15:12 | disposition home or self-care (01) ==
PROVIDERS: Emergency Provider Emergency Medicine; PCP Internal Medicine; Visit Provider Emergency Medicine
DX: R11.2 Nausea with vomiting, unspecified (principal); K50.90 Crohn's disease, unspecified, without complications; R19.7 Diarrhea, unspecified; F42.9 Obsessive-compulsive disorder, unspecified; F32.A Depression, unspecified; Z79.899 Other long term (current) drug therapy
CPT/HCPCS: 74022; 80053; 81001; 84703; 85025; 99283; J2405

== ENCOUNTER 2022-09-13 15:17 | Outpatient (CLI) | payer OTHER, SELFPAY ==
[2022-09-13 16:13] LABS: Absolute Lymphocyte Count 2.91 X10^3/uL (0.83-4.51); Absolute Neutrophil Count 3.6 X10^3/uL (2.0-7.7); Basophil# 0.03 X10^3/uL; Basophil% 0.4 % (0-1); Eosinophil# 0.05 X10^3/uL; Eosinophils% 0.7 % (0-5); Hematocrit 40.1 % (37-47); Hemoglobin 13.6 g/dL (12.0-15.0); Lymphocyte # 2.91 X10^3/ul (0.83-4.51); Lymphocyte % 41.7 % (19-41); Mean Corp Hgb Conc 33.9 g/dL (32-36); Mean Corpuscular Hgb 31.2 pg (27.0-32.0); Mean Platelet Vol. 11.1 fl (6.2-12.0); Monocyte% 5.7 % (0-10); NRBC Flagged by Analyzer 0 % (0-5); Neutrophil # 3.58 X10^3/uL (2.7-7.7); Neutrophil % 51.4 % (47-70); Platelet Count 206 K/mm3 (150-450); RBC Distribution Width CV 12.4 % (11.6-14.6); RBC Distribution Width SD 41.6 fl (35.1-43.9); Red Blood Count 4.36 M/mm3 (4.2-5.4)
[2022-09-13 16:20] LABS: Erythrocyte Sedimentation Rate 3 mm/hr (0-30)
[2022-09-13 17:14] LABS: ALB/GLOB Ratio 1.2 RATIO (0.9-2.4); AST(SGOT) 14 U/L (15-37); Alanine Aminotransfer ALT/SGPT 19 U/L (13-56); Albumin, Serum 3.8 g/dL (3.2-5.0); Alkaline Phosphatase 73 U/L (45-117); Anion Gap 8 (5-15); BUN 8 mg/dL (7-18); BUN/Creat Ratio 12.9 RATIO (10-20); CRP < 2.90 mg/L (0.0-3.0); Calcium,Total 8.6 mg/dL (8.5-10.1); Chloride 108 mmol/L (98-107); Creatinine, Serum 0.62 mg/dL (0.55-1.02); EST Glomerular Filtration Rate 126 mL/min (>60); Est Glom Filt Rate - Afr Amer 152 mL/min (>60); Globulin 3.3 g/dL (2.2-4.2); Glucose 88 mg/dL (74-106); LDH 170 U/L (84-246); Potassium 3.5 mmol/L (3.5-5.1); Protein, Total 7.1 g/dL (6.4-8.2); Sodium Level 140 mmol/L (136-145)
[2022-09-13 18:51] LABS: Rubella IgG Reactive (Nonreactive)
[2022-09-15 15:08] LABS: Endomysial Antibody IgA Negative (Negative); Immunoglobulin A 186 mg/dL (87-352); t-Transglutaminase IgA <2 U/mL (0-3)
[2022-09-15 16:09] LABS: Anti-Centromere B Ab <0.2 AI (0.0-0.9); Anti-Chromatin <0.2 AI (0.0-0.9); Anti-Jo <0.2 AI (0.0-0.9); Anti-Mitochondrial AB <20.0 Units (0.0-20.0); Anti-Scleroderma-70 AB <0.2 AI (0.0-0.9); Anti-dsDNA Ab <1 IU/mL (0-9); RNP Ab 1.1 AI (0.0-0.9); SJOGREN'S Anti-SS-A test < 0.2 AI (0.0-0.9); SJOGREN'S Anti-SS-B test < 0.2 AI (0.0-0.9); Smith Ab <0.2 AI (0.0-0.9)
[2022-09-18 22:07] LABS: B. pertussis IgG < 0.95 index (0.00-0.94); HEPATITIS B SURFACE AG Negative (Negative); Hep C Antibodies Non Reactive (Non Reactive); Hepatitis A IgM Antibody Negative (Negative); Hepatitis B Core AB IgM Negative (Negative); Mumps Antibody, IgM < 0.80 AU (0.00-0.79); QNTFERON TB Mitogen Value > 10.00 IU/mL (.); QNTFERON TB Nil Value 0.06 IU/mL (.); QNTFERON TB1+ Ag Value 0.07 IU/mL (.); QNTFERON TB2+ Ag Value 0.06 IU/mL (.); QNTIFERON TB Positive Criteria Negative (Negative); V-Zoster IgG (Immunity) 144 index (Immune >165)
[2022-09-19 12:08] LABS: Beef <0.10 kU/L (Class 0); Chocolate <0.10 kU/L (Class 0); Corn <0.10 kU/L (Class 0); Milk (Cow) 0.14 kU/L (Class 0/I); Peanut <0.10 kU/L (Class 0); Pork <0.10 kU/L (Class 0); Soybean <0.10 kU/L (Class 0); Wheat <0.10 kU/L (Class 0)
[2022-09-19 13:08] LABS: Albumin 3.9 g/dL (2.9-4.4); Alpha-1-Globulins 0.2 g/dL (0.0-0.4); Alpha-2-Globulins 0.6 g/dL (0.4-1.0); Cytoplasmic Ab (C-ANCA) <1:20 titer (Neg:<1:20); Gamma Globulin 1.2 g/dL (0.4-1.8); Immunoglobulin A 180 mg/dL (87-352); Immunoglobulin E 71 IU/mL (6-495); Immunoglobulin G 1054 mg/dL (586-1602); Immunoglobulin M 66 mg/dL (26-217); Perinuclear Ab (P-ANCA) <1:20 titer (Neg:<1:20)
== END 2022-09-13 23:59 | disposition home or self-care (01) ==
PROVIDERS: PCP Internal Medicine; Referring Provider Internal Medicine Gastroenterology; Visit Provider Internal Medicine Gastroenterology
DX: K50.90 Crohn's disease, unspecified, without complications (principal)
CPT/HCPCS: 36415; 80053; 80074; 82784; 82785; 83516; 83615; 84165; 85025; 85652; 86003; 86005; 86140; 86225; 86235; 86255; 86256; 86334; 86480; 86615; 86735; 86762; 86787

== ENCOUNTER → 2022-09-14 | Outpatient (CLI) | payer OTHER, SELFPAY ==
[2022-09-19 14:09] LABS: Pancreatic Elastase, Fecal 471 (>200)
[2022-09-28 01:07] LABS: Calprotectin, Stool 34 ug/g (0-120); Fats, Neutral Normal (.); Fats, Total Increased (.)
== END | disposition home or self-care (01) ==
PROVIDERS: PCP Internal Medicine; Referring Provider Internal Medicine Gastroenterology; Visit Provider Internal Medicine Gastroenterology
DX: K50.90 Crohn's disease, unspecified, without complications (principal)
CPT/HCPCS: 82274; 82653; 82705; 83630; 83993; 87177; 87209; 87329; 87493; 87506

== ENCOUNTER → 2022-10-02 | Outpatient (CLI) | payer OTHER, SELFPAY ==
--- NOTE | 2022-10-02 11:40 | MRI_ITS ---
MR Enterography Abdomen/Pelvis W/ Contrast 10/02/2022 12:57 PM COMPARISON: CT 09/13/2021 CLINICAL HISTORY: K50.90 - Crohn''s disease, unspecified, without complications MR enterography TECHNIQUE: Following oral administration of enteric contrast and administration of glucagon, multiplanar T1 and T2 weighted images along with dynamic post-gadolinium images were obtained through the abdomen and pelvis. FINDINGS: GI Tract: There is circumferential wall thickening of the terminal ileum with minimal mucosal hyperenhancement. There is also minimal mucosal hyperenhancement of several proximal small bowel loops. No stricture, fistula, or obstruction. No drainable fluid collections. Liver: Unremarkable Gallbladder: Unremarkable Spleen: Unremarkable Pancreas: Unremarkable Adrenal Glands: Unremarkable Kidneys: Unremarkable Bladder: Unremarkable Reproductive: Unremarkable Lymphadenopathy: Absent Ascites: Absent Bones: No suspicious lesions MRI/Enterography Abd/Pel IMPRESSION: Findings consistent with known Crohn''s disease. No stricture, fistula, or obstruction. No drainable fluid collections. Electronically Signed: Chris Calle MD at 19:35 EDT ,
[2022-10-02 12:18] VITALS: BP 121/77; PULSE 63; RESP 14; TEMP 36.4; O2SAT 97; BMI 23.1
[2022-10-02] MEDS: Glucagon 1 MG/ML Syringe IV (13:34)
[2022-10-02 14:05] VITALS: BP 114/72; PULSE 74; RESP 16; O2SAT 100
== END | disposition home or self-care (01) ==
LOC: MRI 11:36
PROVIDERS: PCP Internal Medicine; Referring Provider Internal Medicine Gastroenterology; Visit Provider Internal Medicine Gastroenterology
DX: K50.90 Crohn's disease, unspecified, without complications (principal)
CPT/HCPCS: 74183; 96374; A9575; A4216

== ENCOUNTER → 2022-10-04 | Outpatient (CLI) | payer OTHER, SELFPAY ==
--- NOTE | 2022-10-04 10:13 | NM_ITS ---
CLINICAL: 22-year-old female with history of clinical gastroparesis. SEMI-SOLID PHASE 99m Tc SULFUR COLLOID GASTRIC EMPTYING STUDY COMPARISON: None available FINDINGS: The patient was administered 1.1 mCi of 99m Tc sulfur colloid mixed with oatmeal and consumed per os. Image acquisitions in the anterior-posterior projections were obtained for 60 minutes. There is prompt visualization of the stomach. There is no gastroesophageal reflux identified. First order kinetics are maintained throughout the duration of the acquisitions. The T ? linear fit was calculated to be 150.54 minutes, (Normal: 12-56 minutes). NM/Gastric Emptying Study IMPRESSION: 1. ABNORMAL 99m Tc sulfur colloid semi-solid phase (oatmeal) gastric emptying imaging examination. A. There is delayed semi-solid phase gastric emptying compared to normal controls with maintained first order kinetics throughout all components of the examination. (Azar et al, J Nucl Med Tech 38: 186, 2010). Electronically Signed: Daniel Gold, at 21:10 EDT ,
== END | disposition home or self-care (01) ==
LOC: NM 10:14
PROVIDERS: PCP Internal Medicine; Referring Provider Internal Medicine Gastroenterology; Visit Provider Internal Medicine Gastroenterology
DX: K50.90 Crohn's disease, unspecified, without complications (principal)
CPT/HCPCS: 78264; A9541

== ENCOUNTER 2022-10-24 11:28 | Day surgery (SDC) | payer OTHER, SELFPAY ==
--- NOTE | 2022-10-24 11:50 | HP.PCM_ITS ---
History and Physical Date of Admission: 10/24/22 22 F who presents to the office today for an initial consultation.? She has a pre-existing history of Crohn's disease and is on Humira every other week.? She is not steroid na?ve.? She has had a history of small bowel obstruction in the terminal ileum resulting in NG tube decompression.? She presented to the emergency room back in July 2022 with dry heaving.? She does use marijuana on a daily basis for anxiety and depression.? Previously she was put on Lexapro and Celexa for some anxiety and depression.? She also smokes cigarettes on a daily basis to relieve her anxiety.? When she presented to the emergency room she had multiple episodes of dry heaves accompanied by watery diarrhea.? She denied any bleeding, tenesmus or incontinence. Her current health informatics instructor was out of [place]. Her last EGD was about 2 months ago.? Last colonoscopy was over a year ago.? One of her concerns is that she does not develop an obstruction.? She has no history of abdominal surgery.? She sometimes gets pain down the left lower quadrant but she is not actually having pain now.? No fevers or chills. ROS Const Constitutional: No anorexia, fatigue, fever(s), weight change or sleep problems Eyes Eyes: No change in vision ENT ENT: No abnormal hearing, difficulty swallowing, mouth lesions, tongue swelling or throat swelling Resp Respiratory: No cough or shortness of breath Cardio Cardiology: No chest pain at rest, chest pain with exertion, shortness of breath or dyspnea on exertion Gastro GI: No difficulty swallowing Genitourinary-Female: No difficulty urinating or burning urination Musc Musculoskeletal: No joint pain, joint swelling, muscle weakness or decreased muscle mass Skin Skin: No hair loss in leg, yellowing of the eye, itchy eyes, rash, skin ulcer or skin swelling Neuro Neurology: No abnormal hearing, abnormal movements, confusion, unsteady gait/balance or memory loss Psych Psychiatric: No anxiety, No confusion and No memory loss Endo Endocrine: No fatigue or weight change Aller/Imm Allergy/Immunologic: No itchy eyes, throat swelling or tongue swelling [place]/Lymp Hematologic/Lymphatic: No easy bleeding, easy bruising or enlarged lymph nodes Exam Const General: cooperative and comfortable Nutritional Appearance: average body habitus and well nourished HENMT Head: normal to inspection Ears: hearing grossly normal bilaterally Nose: external nose normal Face and sinus: normal facial exam Mouth: oral mucosae normal Throat: posterior oropharynx normal Eyes General: appearance normal, both eyes and all related structures Neck Neck: normal visual inspection Chest Chest palpation & inspection: normal inspection of the chest and normal palpation of entire chest wall Resp Effort & Inspection: normal respiratory effort Auscultation: Bilateral: Clear to Auscultation Cardio Palpation: normal PMI Rate: regular rate Rhythm: regular rhythm GI Inspection: normal to inspection Auscultation: normal bowel sounds Percussion: normal to percussion Palpation: no hepatosplenomegaly Skin General: no rashes or lesions noted Neuro General: patient alert Extrem General: normal to inspection Psych Affect: normal affect Quality Reporting Tobacco Screening ([facility] 138) Smoking Status: Never smoker Assessment and Plan Assessment and Plan (1) Crohn's disease: ?Status:?Acute ?Plan: 22-year-old with history of ileocolonic Crohn's status post small bowel obstruction with NG tube decompression on Humira.? Recommend to check PPD, hepatitis B serologies.? Also recommend to check NIK, ANCA, QuantiFERON gold, adalimumab levels, adalimumab antibodies, MR enterography.? She will also need an upper lowered endoscopy for further staging purposes.? Once I have more information we able to make recommendations. I have examined the patient and the H&P has been reviewed. There are no clinical changes since date of exam. ? ? ? Orders: Orders Comprehensive Metabolic Profil 09/13/22 K50.90 - Crohn's disease, unspe cified, without complications ? CRP 09/13/22 K50.90 - Crohn's disease, unspe cified, without complications ? LDH 09/13/22 K50.90 - Crohn's disease, unspe cified, without complications ? CBC W/Diff, Automated 09/13/22 K50.90 - Crohn's disease, unspe cified, without complications ? Erythrocyte Sed Rate 09/13/22 K50.90 - Crohn's disease, unspe cified, without complications ? Anti-Mitochondrial AB 09/13/22 K50.90 - Crohn's disease, unspe cified, without complications ? NKI Comprehensive Panel 09/13/22 K50.90 - Crohn's disease, unspe cified, without complications ? Calprotectin, Stool 09/14/22 K50. - Crohn's disease, unspe cified, without complications ? Fecal Fat, Qualitative 09/14/22 - Crohn's disease, unspe cified, without complications ? OVA+PARA w/Giardia EIA [id number] 09/14/22 K5 - Crohn's disease, unspe cified, without complications ? CDIFF (PCR) 09/14/22 - Crohn's disease, unspe cified, without complications ? ENTERIC PATHOGEN PANEL STOOL 09/14/22 K5 - Crohn's disease, unspe cified, without complications, K58.9 - Irritable bowel syndrome without diarrhea ? Stool Occult Blood iFOB 09/14/22 - Crohn's disease, unspe cified, without complications ? Stool Lactoferrin/WBC 09/14/22 - Crohn's disease, unspe cified, without complications ? ANCA 09/13/22 - Crohn's disease, unspe cified, without complications ? Celiac Disease Profile 09/13/22 - Crohn's disease, unspe cified, without complications ? Immunoglobulins G/A/M/E 09/13/22 - Crohn's disease, unspe cified, without complications ? ENIO + Protein Elect, Serum 09/13/22 - Crohn's disease, unspe cified, without complications ? Pancreatic Elastase, Fecal 09/14/22 - Crohn's disease, unspe cified, without complications ? Miscellaneous Lab Procedure 09/13/22 - Crohn's disease, unspe cified, without complications ? Miscellaneous Lab Procedure 2 09/13/22 - Crohn's disease, unspe cified, without complications ? Miscellaneous Lab Procedure 3 09/13/22 - Crohn's disease, unspe cified, without complications ? Miscellaneous Lab Procedure 4 09/13/22 - Crohn's disease, unspe cified, without complications ? Allergen, Rast Food Profile 09/13/22 - Crohn's disease, unspe cified, without complications ? Rubella IgG 05/17/23 K50.90 - Crohn's disease, unspe cified, without complications ? Hepatitis Panel Acute 09/13/22 K50.90 - Crohn's disease, unspe cified, without complications ? Mumps Antibody, IgM 09/13/22 K50. - Crohn's disease, unspe cified, without complications ? B. pertussis IgG 09/13/22 K50.90 - Crohn's disease, unspe cified, without complications ? Quantiferon TB-Gold+ 09/13/22 K50.90 - Crohn's disease, unspe cified, without complications ? V-Zoster IgG (Immunity) 09/13/22 K50.90 - Crohn's disease, unspe cified, without complications ? Enterography Abd/Pel 10/02/22 K50.90 - Crohn's disease, unspe cified, without complications ? Gastric Emptying Study 10/04/22 K50.90 - Crohn's disease, unspe cified, without complications ?
[2022-10-24 11:52] VITALS: BP 105/77; PULSE 88; RESP 18; TEMP 36.7; O2SAT 100; BMI 20.7
[2022-10-24] MEDS: Lactated Ringers 1,000 ML 15 ML IV (11:57)
--- NOTE | 2022-10-24 12:30 | IMM_PTH ---
PATIENT: WILIAM EDWARD LOC: EN U#:[id number] AGE/SX: ROOM: RE10/24/[address]: Dr. Otf Almanzar DO : 2000 BED: DIS: 10/24/2022 SPEC #: [id number] RECD: 10/25/22 14:18 STATUS: EAGLE REQ #: [id number] MARYCRUZ: 10/24/22 12:[address]: Otf Almanzar DEPT: IMMUNOHISTOCHEMISTRY RECD BY: Mariah Gill ENTERED: 10/25/22 14:18 SP TYPE: IMMUNO OTHR DR: Dr. Mey Faustin MD Tissues: Stomach, NOS Procedures: H Pylori (initial) PHYSICIAN & INSTITUTION [place] [id number] SPECIMEN INFORMATION: Tissue Source: B - Antrum biopsy Clinical Info: Crohn's disease Specimen Number: [id number] CPT code: 38712 METHODOLOGY: Deparaffinized sections of prefer/formalin-fixed tissue or PAP/DQ stained slides are incubated with monoclonal/polyclonal antibodies/oligonucleotide probes. Localization is made via biotin free immunoperoxidase method. Appropriate controls are performed and reacted as expected. Results on target cell population are indicated in the following table: RESULTS: ANTIBODY / CLONE RESULT Block B H Pylori (polyclonal) negative These tests were developed and their performance characteristics determined by [facility]. They may not have been cleared or approved by the U.S. Food and Drug Administration. The FDA has determined that such clearance or approval is not necessary. The above immunohistochemical/dualISH markers are ordered and reviewed by the Pathologist. INTERPRETATION: B. Antrum, biopsy: Negative for Helicobacter pylori organisms. SJ:deangelo 10/26/2022
--- NOTE | 2022-10-24 12:30 | EGD_PTH ---
PATIENT: WILIAM EDWARD LOC: EN U#:[id number] AGE/SX: 22/ ROOM: RE10/24/[address]: Dr. Otf Almanzar DO : 2000 BED: DIS: 10/24/2022 SPEC #: [id number] RECD: 10/24/22 15:55 STATUS: EAGLE REWayne #: [id number] MARYCRUZ: 10/24/22 12:[address]: Otf Almanzar DEPT: SURGICAL PATHOLOGY RECD BY: Margi Us ENTERED: 10/25/22 08:42 SP TYPE: EGD BIOPSY OT DR: Dr. Mey Faustin MD Tissues: A - Duodenum, NOS B - Gastric mucous membrane C - Esophagus, NOS D - Esophagus, NOS E - Ileum, NOS Procedures: Special Stain Group II Surgery Specimen Level IV Alcian Blue/PAS (control) HEADER OPERATION: Colonoscopy with dilation, EGD (MAC), biopsy PRE-OP DIAGNOSIS: Crohn's disease TISSUE SUBMITTED: A - Duodenum biopsy, B - Antrum biopsy for histo and H. pylori, C - Distal esophagus biopsy, D - Random esophagus biopsy, E - Terminal ileum biopsy MICROSCOPIC DIAGNOSIS A. Duodenum, biopsy: Fragments of duodenal mucosa, no pathologic diagnosis. B. Antrum, biopsy: Moderate gastritis. See microscopic description and comment. C. Distal esophagus, biopsy: Fragments of gastric mucosa with chronic inflammation. Intestinal metaplasia (goblet cell metaplasia) not identified. See comment. D. Esophagus, random biopsy: Fragments of gastroesophageal mucosa with chronic inflammation. Intestinal metaplasia (goblet cell metaplasia) not identified. See comment. E. Terminal ileum, biopsy: Chronic active inflammation. See microscopic description and comment. SJ:deangelo 10/26/2022 COMMENT B. The results of immunohistochemistry for Helicobacter pylori will be reported separately ([id number]). C & D. Alcian blue/PAS stain with matched control is used in the evaluation of the specimen. E. The findings are consistent with inflammatory bowel disease. Correlation with clinical, endoscopic findings and appropriate follow up are necessary. MICROSCOPIC DESCRIPTION Slides are reviewed. B. The specimen shows fragments of gastric mucosa with chronic inflammatory cell infiltrates in the lamina propria consisting of lymphocytes and plasma cells, consistent with moderate chronic gastritis. E. The specimen shows fragments of small intestinal and colonic mucosa with acute and chronic inflammatory cells infiltrating the lamina propria, glandular distortion, cryptitis, crypt abscesses and ruptured glands with mucin extravasation. Granulomas are not seen. No evidence for dysplasia. GROSS DESCRIPTION A - Received in fixative is one container labeled with the patient's name and designated duodenum biopsy. The specimen consists of two irregular fragments of light turner soft tissue that in aggregate measure 0.6 x 0.3 x 0.1 cm. The specimen is totally submitted in one cassette. B - Received in fixative is one container labeled with the patient's name and designated antrum biopsy. The specimen consists of two irregular fragments of light turner soft tissue that in aggregate measure 0.6 x 0.3 x 0.1 cm. The specimen is totally submitted in one cassette. C - Received in fixative is one container labeled with the patient's name and designated distal esophagus biopsy. The specimen consists of two irregular fragments of light turner soft tissue that in aggregate measure 1.0 x 0.2 x 0.1 cm. The specimen is totally submitted in one cassette. D - Received in fixative is one container labeled with the patient's name and designated random esophagus biopsy. The specimen consists of multiple irregular fragments of light turner soft tissue that in aggregate measure 1.0 x 0.3 x 0.1 cm. The specimen is totally submitted in one cassette. E - Received in fixative is one container labeled with the patient's name and designated terminal ileum biopsy. The specimen consists of two irregular fragments of light turner soft tissue that in aggregate measure 0.6 x 0.3 x 0.1 cm. The specimen is totally submitted in one cassette. / SJ:rg 10/25/2022 TC:2 CPT: 18903 x5, 34044 x2
[2022-10-24 13:20] VITALS: BP 105/77; BP 95/50; PULSE 73; RESP 15; TEMP 36.1; O2SAT 100
--- NOTE | 2022-10-24 13:23 | OP.EGD_ITS ---
Patient Name: Yael Agarwal Procedure Date: 10/24/2022 12:32 PM Date of : 2000 Age: 22 Procedure: Upper GI endoscopy Indications: Epigastric abdominal pain Providers: Otf Almanzar DO Medicines: Monitored Anesthesia Care Patient Profile: This is a 22 year old female. Refer to note in patient chart for documentation of history and physical. Complications: No immediate complications. Procedure: Pre-Anesthesia Assessment: - Prior to the procedure, a History and Physical was performed, and patient medications and allergies were reviewed. The risks and benefits of the procedure and the sedation options and risks were discussed with the patient. All questions were answered and informed consent was obtained. Patient identification and proposed procedure were verified by the physician in the pre-procedure area. Mental Status Examination: alert and oriented. Airway Examination: normal oropharyngeal airway and neck mobility. Respiratory Examination: clear to auscultation. CV Examination: normal. Prophylactic Antibiotics: The patient does not require prophylactic antibiotics. Prior Anticoagulants: The patient has taken no previous anticoagulant or antiplatelet agents. ASA Grade Assessment: II - A patient with mild systemic disease. After reviewing the risks and benefits, the patient was deemed in satisfactory condition to undergo the procedure. The anesthesia plan was to use monitored anesthesia care (MAC). Immediately prior to administration of medications, the patient was re-assessed for adequacy to receive sedatives. The heart rate, respiratory rate, oxygen saturations, blood pressure, adequacy of pulmonary ventilation, and response to care were monitored throughout the procedure. The physical status of the patient was re-assessed after the procedure. After obtaining informed consent, the endoscope was passed under direct vision. Throughout the procedure, the patient's blood pressure, pulse, and oxygen saturations were monitored continuously. The colonoscope was introduced through the mouth, and advanced to the second part of duodenum. The upper GI endoscopy was accomplished without difficulty. The patient tolerated the procedure well. Scope In: Scope Out: 12:52:42 PM Findings: The was some inflammation seen around the vocal cords. No gross lesions were noted in the entire esophagus. Biopsies were taken with a cold forceps for histology. Verification of patient identification for the specimen was done. Estimated blood loss was minimal. Clear fluid was found in the stomach. Fluid aspiration was performed. Verification of patient identification for the specimen was done. Estimated blood loss was minimal. Patchy mildly erythematous mucosa without bleeding was found in the gastric body and in the gastric antrum. No gross lesions were noted in the second portion of the duodenum. Biopsies were taken with a cold forceps for histology. Verification of patient identification for the specimen was done. Estimated blood loss was minimal. Impression: - Inflammation around the vocal cords . - No gross lesions in esophagus. Biopsied. - Clear gastric fluid. Fluid aspiration performed. - Erythematous mucosa in the gastric body and antrum. - No gross lesions in the second portion of the duodenum. Biopsied. Recommendation: - Discharge patient to home. - Resume previous diet. - Continue present medications. - Await pathology results. Procedure Code(s): --- Professional --- 84742, Esophagogastroduodenoscopy, flexible, transoral; with biopsy, single or multiple CPT copyright 2017 [employer]. All rights reserved. The codes documented in this report are preliminary and upon wire winding machine operator review may be revised to meet current compliance requirements. Otf Almanzar DO 10/24/2022 1:23:14 PM This report has been signed electronically. Number of Addenda: 0 Note Initiated On: 10/24/2022 12:32 PM
--- NOTE | 2022-10-24 13:24 | OP.CCLET_ITS ---
10/24/2022 Mey Faustin [address] [place] [address] Re : Upper GI endoscopy procedure for Yael Agarwal Dear Dr. Faustin This procedure was performed on Monday, October 24, 2022. My impressions and recommendations are as follows: Impressions : - Inflammation around the vocal cords . - No gross lesions in esophagus. Biopsied. - Clear gastric fluid. Fluid aspiration performed. - Erythematous mucosa in the gastric body and antrum. - No gross lesions in the second portion of the duodenum. Biopsied. Recommendations : - Discharge patient to home. - Resume previous diet. - Continue present medications. - Await pathology results. My findings are described in the full procedure note, which is enclosed. If I can be of further assistance, please feel free to contact me at . Sincerely, Otf Almanzar, 10/24/2022 1:23:14 PM This report has been signed electronically.
[2022-10-24 13:25] VITALS: BP 105/77; BP 91/54; PULSE 65; RESP 16; O2SAT 100
--- NOTE | 2022-10-24 13:29 | OP.COLON_ITS ---
Patient Name: Yael Agarwal Procedure Date: 10/24/2022 12:52 PM Date of : 2000 Age: 22 Procedure: Colonoscopy Indications: Crohn's disease of the small bowel Providers: Otf Almanzar DO Medicines: Monitored Anesthesia Care Patient Profile: This is a 22 year old female. Refer to note in patient chart for documentation of history and physical. Last Colonoscopy: within the past 3 years. Complications: No immediate complications. Procedure: Pre-Anesthesia Assessment: - Prior to the procedure, a History and Physical was performed, and patient medications and allergies were reviewed. The risks and benefits of the procedure and the sedation options and risks were discussed with the patient. All questions were answered and informed consent was obtained. Patient identification and proposed procedure were verified by the physician in the pre-procedure area. Mental Status Examination: alert and oriented. Airway Examination: normal oropharyngeal airway and neck mobility. Respiratory Examination: clear to auscultation. CV Examination: normal. Prophylactic Antibiotics: The patient does not require prophylactic antibiotics. Prior Anticoagulants: The patient has taken no previous anticoagulant or antiplatelet agents. ASA Grade Assessment: II - A patient with mild systemic disease. After reviewing the risks and benefits, the patient was deemed in satisfactory condition to undergo the procedure. The anesthesia plan was to use monitored anesthesia care (MAC). Immediately prior to administration of medications, the patient was re-assessed for adequacy to receive sedatives. The heart rate, respiratory rate, oxygen saturations, blood pressure, adequacy of pulmonary ventilation, and response to care were monitored throughout the procedure. The physical status of the patient was re-assessed after the procedure. After I obtained informed consent, the scope was passed under direct vision. Throughout the procedure, the patient's blood pressure, pulse, and oxygen saturations were monitored continuously. The colonoscope was introduced through the anus and advanced to the cecum, identified by appendiceal orifice and ileocecal valve. The colonoscopy was performed without difficulty. The patient tolerated the procedure well. The quality of the bowel preparation was good. Scope In: 12:54:34 PM Scope Withdrawal Time 0 hours 16 minutes 35 seconds Scope Out: 1:14:57 PM Total Procedure Duration Time 0 hours 20 minutes 23 seconds Findings: The perianal and digital rectal examinations were normal. A 5 mm fistula was found in the cecum. A benign-appearing, intrinsic severe stenosis measuring 3 cm (in length) was found at the ileocecal valve and was non-traversed. Biopsies were taken with a cold forceps for histology. Verification of patient identification for the specimen was done. Estimated blood loss was minimal. A TTS dilator was passed through the scope. Dilation with a 12 mm colonic balloon dilator was performed. The dilation site was examined and showed mild improvement in luminal narrowing. Estimated blood loss was minimal. 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 Biopsied. Dilated. Recommendation: - Discharge patient to home. - Resume previous diet. - Continue present medications. - Await pathology results. - Repeat colonoscopy for surveillance. Procedure Code(s): --- Professional --- 40469, Colonoscopy, flexible; with transendoscopic balloon dilation 46410, Colonoscopy, flexible; with biopsy, single or multiple CPT copyright 2017 [employer]. All rights reserved. The codes documented in this report are preliminary and upon soil biology teacher review may be revised to meet current compliance requirements. Otf Almanzar DO 10/24/2022 1:29:01 PM This report has been signed electronically. Number of Addenda: 0 Note Initiated On: 10/24/2022 12:52 PM
[2022-10-24 13:30] VITALS: BP 105/77; BP 94/60; PULSE 90; RESP 16; O2SAT 100
--- NOTE | 2022-10-24 13:30 | OP.CCLET_ITS ---
10/24/2022 Mey Faustin [address] [place] [address] Re : Colonoscopy procedure for Yael Agarwal Dear Dr. Faustin This procedure was performed on Monday, October 24, 2022. My impressions and recommendations are as follows: Impressions : - Colonic fistula. - Stricture at the ileocecal valve. Biopsied. Dilated. Recommendations : - Discharge patient to home. - Resume previous diet. - Continue present medications. - Await pathology results. - Repeat colonoscopy for surveillance. My findings are described in the full procedure note, which is enclosed. If I can be of further assistance, please feel free to contact me at . Sincerely, Otf Almanzar, 10/24/2022 1:29:01 PM This report has been signed electronically.
[2022-10-24 13:35] VITALS: BP 105/77; BP 116/83; PULSE 61; RESP 16; TEMP 36.1; O2SAT 100
[2022-10-24 13:52] VITALS: BP 105/77
== END 2022-10-24 14:12 | disposition home or self-care (01) ==
LOC: EN 11:32 → AC 11:33
PROVIDERS: PCP Internal Medicine; Referring Provider Internal Medicine; Visit Provider Internal Medicine Gastroenterology
PROC: 0DJD8ZZ Inspection of Lower Intestinal Tract, Via Natural or Artificial Opening Endoscopic (ICD-10-PCS; CPT 45378; principal; 2022-10-24 12:25)
DX: K50.013 Crohn's disease of small intestine with fistula (principal); K29.50 Unspecified chronic gastritis without bleeding; F32.A Depression, unspecified; F41.9 Anxiety disorder, unspecified; Z79.899 Other long term (current) drug therapy
CPT/HCPCS: 45380; 45386; 43239; 88305; 88313; 88342; J7120

== ENCOUNTER 2022-11-02 00:47 | Emergency (ER) | payer OTHER, SELFPAY ==
[2022-11-02 00:49] VITALS: BP 112/63; PULSE 59; RESP 16; TEMP 36.3; O2SAT 99; BMI 21.9
--- NOTE | 2022-11-02 01:56 | EKG12_ITS ---
Test Reason : SYNCOPE Blood Pressure : / mmHG Vent. Rate : 057 BPM Atrial Rate : 057 BPM P-R Int : 198 ms QRS Dur : 084 ms QT Int : 432 ms P-R-T Axes : 046 079 064 degrees QTc Int : 420 ms Sinus bradycardia with sinus arrhythmia Otherwise normal ECG Confirmed by CEDRIC PIERCE, ERIC ([id number]), mapping editor LISANDRO NAVARRO ([id number]) on 11/06/2022 12:55:29 P M Referred By: Confirmed By:CASEY STEELE MD
--- NOTE | 2022-11-02 01:57 | EDS_ITS ---
HPI History of Present Illness Chief Complaint: Syncope Narrative Narrative: 22-year-old female with history of Crohn's disease presenting with lightheadedness, body aches, muscle cramps. She states she is felt this way for several days. She recently had a colonoscopy performed by Dr. Almanzar. Since that time she has had waves of nausea and lightheadedness. She states she has not had any black or bloody stools. She denies fevers. She describes waves of nausea and abdominal tightness. She feels like her heart racing at times. She has been near syncopal twice when she gets up. Denies chest pain or shortness of breath. Patient states she has had syncope in the past and she was told this was because she did not eat well that day and had been dehydrated from working out earlier in the day. Family history of sudden cardiac . She does state with her history of Crohn's disease her diet is limited and she is a picky eater as well so she does not know if she is behind on her nutrition. She states she is making urine and [facility] History Alcohol use Anxiety and depression Asthma Atopic eczema Easy bruising History of Crohn's disease Idiopathic colitis Low iron Marijuana use Non-smoker Syncope Home Medications cetirizine 10 mg capsule (Zyrtec) 10 mg PO DAILY 10/09/16 [History Last Taken Unknown] adalimumab 40 mg/0.8 mL subcutaneous pen kit (Humira Pen) 40 mg subcut .[id number] 08/15/22 [History Last Taken 10/18/22] fluticasone propionate 50 mcg/actuation nasal spray,suspension 1 spray intranasal PRN PRN ALLERGIES 08/15/22 [History Last Taken Unknown] Allergy/AdvReac Type Severity Reaction Status Date / Time Environmental Allergies: Allergy NEEDS Verified 11/02/22 00:53 Uncoded FOLLOW-UP Latex, Natural Rubber Allergy Rash Verified 11/02/22 00:53 Family History Sister PCOS (polycystic ovarian syndrome) Surgical History H/O tympanostomy History of esophagogastroduodenoscopy (EGD) Hx of colonoscopy Hx of myringotomy Social History Smoking Status: Never smoker alcohol intake: never ROS ROS ED Constitutional Constitutional ED: Denies chills or fever(s) Eyes Eyes: Denies change in vision or diplopia ENT ENT ED: Denies rhinorrhea or sore throat Cardiovascular Cardiovascular: Reports palpitations; Denies chest pain Respiratory/Chest Respiratory/Chest: Denies cough or dyspnea Gastrointestinal Gastrointestinal: Reports abdominal pain and nausea Genitourinary Genitourinary ED: Denies dysuria or hematuria Musculoskeletal Musculoskeletal: Reports myalgias Integumentary Denies abscess or Abrasions Neurologic Neurologic: Denies headache(s) or paresthesias Psychiatric Psychiatric: Denies anxiety or depression EXAM Physical Exam Const Vital Signs: 11/02/22 00:49 11/02/22 00:55 11/02/22 02:04 Temperature 97.4 F L Temperature Source Temporal Pulse Rate 59 L Pulse Rate [Lying] 68 Pulse Rate [Sitting (for 1 minute prior to obtaining)] 65 Pulse Rate [Standing (for 1 minute prior to obtaining)] 72 Respiratory Rate 16 Respiratory Effort Normal Non-Labored Respiratory Pattern Normal Blood Pressure 112/63 Blood Pressure [Lying] 101/49 L Blood Pressure [Sitting (for 1 minute prior to obtaining)] 108/68 Blood Pressure [Standing (for 1 minute prior to obtaining)] 101/70 Blood Pressure Mean 79 Blood Pressure Mean [Lying] 66 Blood Pressure Mean [Sitting (for 1 minute prior to obtaining)] 81 Blood Pressure Mean [Standing (for 1 minute prior to obtaining)] 80 Pulse Ox 99 Oxygen Delivery Method Room Air 11/02/22 03:00 Temperature Temperature Source Pulse Rate 67 Pulse Rate [Lying] Pulse Rate [Sitting (for 1 minute prior to obtaining)] Pulse Rate [Standing (for 1 minute prior to obtaining)] Respiratory Rate 18 Respiratory Effort Respiratory Pattern Blood Pressure 99/58 L Blood Pressure [Lying] Blood Pressure [Sitting (for 1 minute prior to obtaining)] Blood Pressure [Standing (for 1 minute prior to obtaining)] Blood Pressure Mean 71 Blood Pressure Mean [Lying] Blood Pressure Mean [Sitting (for 1 minute prior to obtaining)] Blood Pressure Mean [Standing (for 1 minute prior to obtaining)] Pulse Ox 99 Oxygen Delivery Method Room Air Positive well nourished General Appearance ED: NAD HEENT Reports moist mucous membranes Eyes PERRL and EOMs intact bilaterally General Eye ED: Negative for pale conjunctiva Chest Wall inspection of chest normal Resp normal respiratory effort and clear to auscultation bilaterally Auscultation: Negative for rales, rhonchi or wheezes Cardio regular rate and regular rhythm GI normal to inspection, nondistended, normoactive bowel sounds Back/Spine no CVA tenderness Extremity normal to inspection General Extremety ED: Negative for edema or tenderness General Extremity: Negative for edema Neuro oriented x3 and CN's II-XII intact bilaterally Sensorium / Orientation: alert Psych mental status grossly normal MDM MDM MDM Narrative Medical decision making narrative: Patient presenting with lightheadedness. She has a history of chronic nausea and decreased p.o. intake. She sees Dr. Almanzar for history of Crohn's disease. She is on Humira for this. She had any fevers. She is stating that she is having muscle cramps throughout her body and body aches. She feels she may be dehydrated. She had a couple episodes where she felt like she might faint. Differential includes dehydration, orthostatic hypotension, electrolyte a bnormalities, dysrhythmia, UTI. CBC obtained to assess white blood cell count, hemoglobin and platelet, differential. CMP to assess liver function, renal function, electrolytes, glucose, anion gap. EKG will be obtained to rule out ischemia or dysrhythmia. High-sensitivity troponin be ordered as well. Patient given IV fluids and Zofran after orthostatics were negative. She is feeling improved. CBC and CMP unremarkable. High sensitive troponin less than 3. EKG on my interpretation shows sinus bradycardia with a ventricular rate of 57 bpm without sign of ischemic change. Serum hCG negative. Urinalysis negative for infection. Patient counseled on all findings. I offered her Zofran for home but she states she has some. I recommended she follow-up with Dr. Almanzar and return precautions were discussed. Impression: 1. Lightheadedness 2. Nausea 3. Body aches Lab Data Attestation: I reviewed the patient's lab results. Labs: Laboratory Results - last 24 hr 11/02/22 11/02/22 11/02/22 01:05 02:30 02:52 WBC 9.0 RBC 4.80 Hgb 14.8 Hct 41.4 MCV 86.3 MCH 30.8 MCHC 35.7 RDW Std Deviation 37.4 RDW Coeff of Jinny 11.9 Plt Count 136 L MPV 12.0 Immature Gran % (Auto) 0.200 Neut % (Auto) 38.8 L Lymph % (Auto) 52.8 H Mcpherson % (Auto) 5.9 Eos % (Auto) 1.9 Baso % (Auto) 0.4 Absolute Neuts (auto) 3.5 Absolute Lymphs (auto) 4.77 H Nucleated RBC % 0 Differential Comment SCANNED Platelet Estimate ADEQUATE Sodium Cancelled 138 Potassium Cancelled 3.9 Chloride Cancelled 104 Carbon Dioxide Cancelled 29.0 Anion Gap Cancelled 5 BUN Cancelled 9 Creatinine Cancelled 0.73 Estim Creat Clear Calc Cancelled 112.20 Est GFR (MDRD) Af Amer Cancelled 127 Est GFR (MDRD) Non-Af Cancelled 105 BUN/Creatinine Ratio Cancelled 12.4 Glucose Cancelled 93 Calcium Cancelled 8.5 Total Bilirubin Cancelled 1.00 AST Cancelled 12 L ALT Cancelled 15 Alkaline Phosphatase Cancelled 72 Troponin I High Sens Cancelled < 3 L Total Protein Cancelled 6.5 Albumin Cancelled 3.5 Globulin Cancelled 3.0 Albumin/Globulin Ratio Cancelled 1.2 Serum , Qual NEGATIVE Urine Color Yellow Urine Clarity Clear Urine pH 5.0 Ur Specific [place] 1.025 Urine Protein 15 H Urine Glucose (UA) Normal Urine Ketones 5 H Urine Occult Blood Negative Urine Nitrite Negative Urine Bilirubin 1 H Urine Urobilinogen 1 H Ur Leukocyte Esterase 25 H Urine RBC 0 SEEN Urine WBC 0 SEEN Ur Squamous Epith Cells 0 SEEN Urine Bacteria 0 SEEN Urine Mucus 0 SEEN Discharge Plan Triage Chief Complaint: Syncope ED Provider: Zack Barlow Dx/Rx/DC Orders Instructions: ED Muscle Spasm, ED Near-Fainting, Uncertain Cause Prescriptions: No Action fluticasone propionate 50 mcg/actuation spray,suspension 1 spray intranasal PRN PRN (Reason: ALLERGIES) Rx Instructions: administer into each nostril Humira Pen 40 mg/0.8 mL pen injector kit 40 mg subcut .[id number] Zyrtec 10 MG capsule 10 mg PO DAILY Primary Care Provider: Mey Faustin Referrals: Mey Faustin MD [Primary Care Provider] - Disposition Disposition: Home, Self Care
[2022-11-02 02:04] VITALS: BP 101/49; BP 101/70; BP 108/68; PULSE 65; PULSE 68; PULSE 72
[2022-11-02 02:04] LABS: Absolute Lymphocyte Count 4.77 X10^3/uL (0.83-4.51); Absolute Neutrophil Count 3.5 X10^3/uL (2.0-7.7); Basophil# 0.04 X10^3/uL; Basophil% 0.4 % (0-1); Differential Indicated SCAN CRITERIA MET; Eosinophil# 0.17 X10^3/uL; Eosinophils% 1.9 % (0-5); Hematocrit 41.4 % (37-47); Hemoglobin 14.8 g/dL (12.0-15.0); Lymphocyte # 4.77 X10^3/ul (0.83-4.51); Lymphocyte % 52.8 % (19-41); Mean Corp Hgb Conc 35.7 g/dL (32-36); Mean Corpuscular Hgb 30.8 pg (27.0-32.0); Mean Corpuscular Volume 86.3 fL (81-99); Monocyte# 0.53 X10^3/uL; Monocyte% 5.9 % (0-10); NRBC Flagged by Analyzer 0 % (0-5); Neutrophil % 38.8 % (47-70); POSITIVE COUNT YES; Platelet Count 136 K/mm3 (150-450); RBC Distribution Width CV 11.9 % (11.6-14.6); RBC Distribution Width SD 37.4 fl (35.1-43.9)
[2022-11-02 02:10] LABS: Internal QC Validated? YES +Cl - CLEAR BKGD; Pregnancy, Serum, hCG Quali. NEGATIVE Negative
[2022-11-02 02:37] LABS: Bacteria 0 SEEN /hpf (None Seen); Mucous, Urine 0 SEEN /hpf (<or=2+); Red Blood Cells-Urine 0 SEEN /hpf (0-5); Squamous Epithelial Cells - UA 0 SEEN /hpf (5-10); White Blood Cells 0 SEEN /hpf (0-5)
[2022-11-02 02:43] LABS: Color, Urine Yellow (Yellow); Glucose, Dipstick Normal (Normal); Ketone-Dipstick 5 mg/dl (Negative); Leukocyte Esterase-Dipstick 25 /ul (Negative); Nitrite-Dipstick Negative (Negative); Occult Blood-Urine Negative /ul (Negative); Protein-Dipstick 15 mg/dl (Negative); Specific Gravity, Urine 1.025 (1.002-1.030); Urine Clarity Clear (Clear); Urine Urobilinogen 1 mg/dl (Normal)
[2022-11-02 02:45] LABS: Urine Bilirubin Dipstick 1 mg/dL (Negative)
[2022-11-02 02:45] LABS: Differential Comment SCANNED; Platelet Estimate ADEQUATE (ADEQ)
[2022-11-02 03:00] VITALS: BP 99/58; PULSE 67; RESP 18; O2SAT 99
[2022-11-02 03:16] LABS: ALB/GLOB Ratio 1.2 RATIO (0.9-2.4); AST(SGOT) 12 U/L (15-37); Alanine Aminotransfer ALT/SGPT 15 U/L (13-56); Albumin, Serum 3.5 g/dL (3.2-5.0); Alkaline Phosphatase 72 U/L (45-117); Anion Gap 5 (5-15); BUN 9 mg/dL (7-18); BUN/Creat Ratio 12.4 RATIO (10-20); Calcium,Total 8.5 mg/dL (8.5-10.1); Chloride 104 mmol/L (98-107); Creatinine, Serum 0.73 mg/dL (0.55-1.02); EST Glomerular Filtration Rate 105 mL/min (>60); Est Glom Filt Rate - Afr Amer 127 mL/min (>60); Glucose 93 mg/dL (74-106); Potassium 3.9 mmol/L (3.5-5.1); Protein, Total 6.5 g/dL (6.4-8.2); Sodium Level 138 mmol/L (136-145); Troponin-I HS < 3 pg/mL (3.0-54.0)
[2022-11-02] MEDS: Ondansetron 4 MG/2 ML Vial IV (03:39)
[2022-11-02] MEDS: 0.9% Normal Saline 1,000 ML 999 ML IV (03:40)
[2022-11-02 05:07] VITALS: BP 123/70; PULSE 78; RESP 18; O2SAT 98
== END 2022-11-02 05:12 | disposition home or self-care (01) ==
PROVIDERS: Emergency Provider Student in an Organized Health Care Education/Training Program; PCP Internal Medicine; Visit Provider Student in an Organized Health Care Education/Training Program
DX: R42 Dizziness and giddiness (principal); K50.90 Crohn's disease, unspecified, without complications; R11.0 Nausea; M79.10 Myalgia, unspecified site; Z79.899 Other long term (current) drug therapy
CPT/HCPCS: 80053; 81001; 84484; 84703; 85025; 93005; 96361; 96374; 99284; J7030; A4216; J2405

== ENCOUNTER 2022-11-15 10:09 | Outpatient (RCR) | payer OTHER, SELFPAY | END 2022-11-27 23:59 | LOC: NS 10:09 | PROVIDERS: PCP Internal Medicine; Visit Provider Internal Medicine Gastroenterology | DX: Z71.3 Dietary counseling and surveillance (principal); K50.90 Crohn's disease, unspecified, without complications | CPT/HCPCS: 97802 ==

== ENCOUNTER 2022-12-01 13:25 | Outpatient (CLI) | payer OTHER, SELFPAY ==
[2022-12-01 13:42] VITALS: BP 105/52; PULSE 67; RESP 16; TEMP 36.2; O2SAT 99; BMI 20.9
[2022-12-01] MEDS: 0.9% NaCl IVPB Med Flush (250 mL) 15 ML IV (14:21)
[2022-12-01 15:54] VITALS: BP 120/56; PULSE 72; RESP 16; TEMP 36.8; O2SAT 99
== END 2022-12-01 13:26 | disposition home or self-care (01) ==
LOC: MEDOUTP 13:26
PROVIDERS: PCP Internal Medicine; Referring Provider Internal Medicine Gastroenterology; Visit Provider Internal Medicine Gastroenterology
DX: K50.90 Crohn's disease, unspecified, without complications (principal)
CPT/HCPCS: 96365; J7050; J3358

== ENCOUNTER 2023-07-02 15:31 | Outpatient (CLI) | payer OTHER, SELFPAY ==
[2023-07-02 16:21] LABS: Absolute Lymphocyte Count 1.93 X10^3/uL (0.83-4.51); Absolute Neutrophil Count 1.5 X10^3/uL (2.0-7.7); Basophil# 0.02 X10^3/uL; Basophil% 0.5 % (0-1); Eosinophil# 0.04 X10^3/uL; Eosinophils% 1.1 % (0-5); Hematocrit 41.6 % (37-47); Hemoglobin 14.4 g/dL (12.0-15.0); Lymphocyte # 1.93 X10^3/ul (0.83-4.51); Lymphocyte % 50.9 % (19-41); Mean Corp Hgb Conc 34.6 g/dL (32-36); Mean Corpuscular Hgb 29.6 pg (27.0-32.0); Mean Corpuscular Volume 85.4 fL (81-99); Mean Platelet Vol. 11.3 fl (6.2-12.0); Monocyte# 0.29 X10^3/uL; Monocyte% 7.7 % (0-10); NRBC Flagged by Analyzer 0 % (0-5); Neutrophil % 39.5 % (47-70); Platelet Count 185 K/mm3 (150-450); RBC Distribution Width CV 12.4 % (11.6-14.6); RBC Distribution Width SD 38.3 fl (35.1-43.9); Red Blood Count 4.87 M/mm3 (4.2-5.4); White Blood Count 3.8 K/mm3 (4.4-11.0)
[2023-07-02 16:39] LABS: Erythrocyte Sedimentation Rate 9 mm/hr (0-30)
[2023-07-02 17:06] LABS: Vitamin B12 640 pg/mL (211-911)
[2023-07-02 17:14] LABS: ALB/GLOB Ratio 1.1 RATIO (0.9-2.4); AST(SGOT) 18 U/L (15-37); Alanine Aminotransfer ALT/SGPT 14 U/L (13-56); Albumin, Serum 3.8 g/dL (3.2-5.0); Alkaline Phosphatase 76 U/L (45-117); Anion Gap 4 (5-15); BUN 9 mg/dL (7-18); BUN/Creat Ratio 11.7 RATIO (10-20); CRP < 2.90 mg/L (0.0-3.0); Calcium,Total 8.6 mg/dL (8.5-10.1); Chloride 106 mmol/L (98-107); Creatinine, Serum 0.77 mg/dL (0.55-1.02); EST Glomerular Filtration Rate 97 mL/min (>60); Est Glom Filt Rate - Afr Amer 118 mL/min (>60); Globulin 3.6 g/dL (2.2-4.2); Glucose 92 mg/dL (74-106); LDH 158 U/L (84-246); Potassium 3.7 mmol/L (3.5-5.1); Protein, Total 7.4 g/dL (6.4-8.2); Sodium Level 138 mmol/L (136-145)
[2023-07-06 10:09] LABS: ACCA 32 units (0-90); AMCA 28 units (0-100); Anti-Parietal Cell AB, QN 17.7 Units (0.0-20.0); Chromogranin A 40.5 ng/mL (0.0-101.8); Cytoplasmic Ab (C-ANCA) <1:20 titer (Neg:<1:20); Gastrin, Serum 83 pg/mL (0-115); Intrinsic Factor Ab 1.1 AU/mL (0.0-1.1); Perinuclear Ab (P-ANCA) <1:20 titer (Neg:<1:20); QNTFERON TB Mitogen Value > 10.00 IU/mL (.); QNTFERON TB Nil Value 0.04 IU/mL (.); QNTFERON TB1+ Ag Value 0.04 IU/mL (.); QNTFERON TB2+ Ag Value 0.05 IU/mL (.); QNTIFERON TB Positive Criteria Negative (Negative); gASCA 153 units (0-50)
[2023-07-10 00:07] LABS: Anti-Centromere B Ab <0.2 AI (0.0-0.9); Anti-Chromatin <0.2 AI (0.0-0.9); Anti-Jo <0.2 AI (0.0-0.9); Anti-Scleroderma-70 AB <0.2 AI (0.0-0.9); Anti-dsDNA Ab <1 IU/mL (0-9); Beef <0.10 kU/L (Class 0); Chocolate <0.10 kU/L (Class 0); Codfish <0.10 kU/L (Class 0); Corn <0.10 kU/L (Class 0); Egg, Whole 0.15 kU/L (Class 0/I); Milk (Cow) 0.18 kU/L (Class 0/I); Mussels <0.10 kU/L (Class 0); Peanut <0.10 kU/L (Class 0); Pork <0.10 kU/L (Class 0); SJOGREN'S Anti-SS-A test < 0.2 AI (0.0-0.9); SJOGREN'S Anti-SS-B test < 0.2 AI (0.0-0.9); Salmon <0.10 kU/L (Class 0); Shrimp <0.10 kU/L (Class 0); Smith Ab <0.2 AI (0.0-0.9); Soybean <0.10 kU/L (Class 0); Tuna <0.10 kU/L (Class 0); Wheat <0.10 kU/L (Class 0)
[2023-07-25 14:46] LABS: ALCA 4 units (0-60)
== END 2023-07-02 23:59 | disposition home or self-care (01) ==
PROVIDERS: PCP Internal Medicine; Referring Provider Internal Medicine Gastroenterology; Visit Provider Internal Medicine Gastroenterology
DX: K50.90 Crohn's disease, unspecified, without complications (principal)
CPT/HCPCS: 36415; 80053; 82607; 82746; 82941; 83516; 83615; 85025; 85652; 86003; 86005; 86036; 86140; 86225; 86235; 86256; 86316; 86340; 86480; 86671

== ENCOUNTER → 2023-08-30 | Outpatient (CLI) | payer OTHER, SELFPAY ==
[2023-09-06 00:07] LABS: Calprotectin, Stool 48 ug/g (0-120)
== END | disposition home or self-care (01) ==
PROVIDERS: Referring Provider Internal Medicine Gastroenterology; Visit Provider Internal Medicine Gastroenterology
DX: K50.90 Crohn's disease, unspecified, without complications (principal)
CPT/HCPCS: 83630; 83993

== ENCOUNTER → 2023-09-15 | Outpatient (CLI) | payer OTHER, SELFPAY ==
[2023-09-20 22:06] LABS: Alternaria tenuis 4.24 kU/L (Class IV); Ash, White <0.10 kU/L (Class 0); Aspergillus fumigatus <0.10 kU/L (Class 0); Bermuda Grass 0.36 kU/L (Class I); Birch <0.10 kU/L (Class 0); Black Walnut <0.10 kU/L (Class 0); Cedar, Mountain <0.10 kU/L (Class 0); Cladosporium herbarum <0.10 kU/L (Class 0); Clam <0.10 kU/L (Class 0); Cockroach, American <0.10 kU/L (Class 0); Codfish <0.10 kU/L (Class 0); Corn <0.10 kU/L (Class 0); Cottonwood <0.10 kU/L (Class 0); D farinae Mite <0.10 kU/L (Class 0); D pteronyssinus <0.10 kU/L (Class 0); Dog Epithelia 1.52 kU/L (Class III); Egg, White <0.10 kU/L (Class 0); Elm, American White <0.10 kU/L (Class 0); Immunoglobulin E 59 IU/mL (6-495); Maple/Box Elder 0.73 kU/L (Class II); Milk (Cow) 0.14 kU/L (Class 0/I); Mouse Urine <0.10 kU/L (Class 0); Mulberry, White <0.10 kU/L (Class 0); Oak, White <0.10 kU/L (Class 0); Peanut <0.10 kU/L (Class 0); Pecan 0.33 kU/L (Class I); Penicillium Notatum <0.10 kU/L (Class 0); Pigweed, Rough <0.10 kU/L (Class 0); Ragweed, Short/Common 0.14 kU/L (Class 0/I); Russian Thistle <0.10 kU/L (Class 0); SCALLOP <0.10 kU/L (Class 0); SESAME SEED <0.10 kU/L (Class 0); Sheep Sorrel <0.10 kU/L (Class 0); Shrimp <0.10 kU/L (Class 0); Soybean <0.10 kU/L (Class 0); Sycamore, American <0.10 kU/L (Class 0); Timothy Grass 2.37 kU/L (Class III); Walnut, (Food) <0.10 kU/L (Class 0); Wheat <0.10 kU/L (Class 0)
== END | disposition home or self-care (01) ==
LOC: LAB 09:34
PROVIDERS: Referring Provider Otolaryngology; Visit Provider Otolaryngology
DX: T78.40XA Allergy, unspecified, initial encounter (principal)
CPT/HCPCS: 36415; 82785; 86003

== ENCOUNTER 2023-11-13 11:09 | Day surgery (SDC) | payer OTHER, SELFPAY ==
[2023-11-13] VITALS (8 sets, daily range): BP systolic 100–119; BP diastolic 62–86; PULSE 65–90; RESP 16–18; TEMP 36.2–36.8; O2SAT 95–100; BMI 22.0
[2023-11-13 11:32] LABS: Internal QC Validated? YES +Cl - CLEAR BKGD; Pregnancy, Urine Negative Negative
[2023-11-13] MEDS: Lactated Ringers 1,000 ML 15 ML IV (11:32)
--- NOTE | 2023-11-13 11:54 | PCM.PRE.AN2 ---
ASA Classification* ASA Classification ASA Classification: 2 Assessment & Plan Anesthesia* Anesthesia Assessment Anesthesia Assessment: Discussed sedation and/or anesthesia options, risks, benefits, and alternatives with patient/parents/legal guardian/POA. Questions invited. The patient/parents/legal guardian/POA seems to understand and agrees to proceed with anesthesia plan. Reviewed the physical assessment, medical history, allergy history and patient home medications list prior to surgery/procedure/anesthetic and documented any changes. Performed airway and anesthesia risk assessments. Anesthesia Type Anesthesia Type: MAC History Source History Obtained from:: Patient and Chart Anesthesia Focused Assessment* Temperature: 98.2 F Pulse Rate: 65 Blood Pressure: 119/86 Respiratory Rate: 16 Pulse Ox: 95 Oxygen Delivery Method: Room Air Airway Assessment Mouth opens: >3 cm Mallampati Score: I Teeth Condition: Intact Neck Range of motion (ROM): Full ROM Pertinent Findings EKG Pertinent Findings:: November 02, 2022. Sinus bradycardia with sinus arrhythmia Focused Labs Anesthesia Preop lab: CBC WBC 3.8 K/mm3 (4.4-11.0) L 07/02/23 15:38 RBC 4.87 M/mm3 (4.2-5.4) 07/02/23 15:38 Hgb 14.4 g/dL (12.0-15.0) 07/02/23 15:38 Hct 41.6 % (37-47) 07/02/23 15:38 Plt Count 185 K/mm3 (150-450) 07/02/23 15:38 CHEMISTRY Potassium 3.7 mmol/L (3.5-5.1) 07/02/23 15:38 Sodium 138 mmol/L (136-145) 07/02/23 15:38 BUN 9 mg/dL (7-18) 07/02/23 15:38 Creatinine 0.77 mg/dL (0.55-1.02) 07/02/23 15:38 Glucose 92 mg/dL (74-106) 07/02/23 15:38 COAG Urine Test Negative Negative 11/13/23 10:15 Pre-Assessment Diagnosis/Proposed Procedure Planned Operative Procedure(s): CSCOPE Anesthesia History 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 When Was Last Pacemaker Check QUESTION #4 FULL TEXT: You/Your Family Experience fever (hyperthermia) with Anesthesia Last Oral Intake Last Oral intake: Last Oral Intake NPO since 09:00 11/13/23 11:29 Meds taken in AM with sips of No 11/13/23 11:29 water? Meds patient instructed to take am of surgery PONV PONV - rail project engineer: PONV - rail project engineer Female Yes 11/06/23 15:12 HX of Motion Sickness No 11/06/23 15:12 HX of N/V After Surgery No 11/06/23 15:12 Non-Smoker Yes 11/06/23 15:12 Duration of Surgery greater No 11/06/23 15:12 than 60 minutes Number of Risk Factors 2 11/06/23 15:12 PONV Score Moderate Risk 11/06/23 15:12 Height & Weight Height & Weight: Anesthesia: Height & Weight Height 5 ft 6 in 11/13/23 11:29 Weight: 62 kg 11/13/23 11:29 Body Mass Index (BMI) 22.0 11/13/23 11:29 Respiratory Assessment Respiratory Assessment - rail project engineer: Respiratory Tract Infection Hx - rail project engineer Hx Respiratory Tract Infection No 11/06/23 15:12 STOP Sleep Apnea STOP Sleep Apnea - rail project engineer: STOP Sleep Apnea - rail project engineer Hx Hypertension No 11/06/23 15:12 Hx Sleep Apnea No 11/06/23 15:12 CPAP BIPAP Do you snore loudly (louder No 11/06/23 15:12 than talking or can be heard Do you often feel tired/ No 11/06/23 15:12 fatigued/ sleepy during daytime? Has anyone observed you stop No 11/06/23 15:12 breathing during sleep? STOP Results Negative 11/06/23 15:12 QUESTION #5 FULL TEXT : Do you snore loudly (louder than talking or can be heard through closed doors)? 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 Specify any problems Hx of Preganancy in last 3 N/A 11/06/23 15:12 Months Nurse Filling Out Transfusion NBUCHER 11/06/23 15:12 & Questions: Date: 11/06/23 11/06/23 15:12 Time: 15:13 11/06/23 15:12 Patient unable to answer at this time (ie. confused, unrespo /Reproduction History /Reproductive History - rail project engineer: /Reproductive Hx- rail project engineer Hx Now No 11/06/23 15:12 Gestational Age (in weeks): EDC: Hx Hx Para Hx Section SAB No 11/06/23 15:12 Active Medications Active Medications: Current Medications Generic Name Dose Route Start Last Admin Trade Name Freq PRN Reason Stop Dose Admin Lactated Ringer's 1,000 mls @ 15 mls/hr 11/13/23 11:15 11/13/23 11:32 IV 15 mls/hr .Q48H VASU Administration PFSH Medical History Depression Anxiety Bulimia nervosa in partial remission Obsessive compulsive disorder Cannabis use disorder, mild, in early remission Marijuana use Alcohol use Low iron Easy bruising Syncope History of Crohn's disease Non-smoker Atopic eczema Asthma Anxiety and depression Idiopathic colitis Home Medications ?Medication ?Instructions ?Recorded ?Last Taken ?Type cetirizine 10 mg capsule (Zyrtec) 10 mg PO DAILY 10/09/16 11/11/23 History fluticasone propionate 50 1 spray intranasal PRN PRN 08/15/22 11/11/23 History mcg/actuation nasal ALLERGIES spray,suspension pantoprazole 40 mg tablet,delayed 40 mg PO BID #60 tabs 11/07/22 11/11/23 Rx release (Protonix) ustekinumab 90 mg/mL subcutaneous 90 mg subcut Q8W #1 mL 12/11/22 11/07/23 Rx syringe (Stelara) methylphenidate HCl 5 mg tablet 5 mg PO DAILY PRN ADHD 12/25/22 11/11/23 History fluoxetine 10 mg capsule 10 mg PO DAILY PRN anxiety 11/06/23 11/11/23 History Allergy/AdvReac Type Severity Reaction Status Date / Time Environmental Allergies: Allergy NEEDS Verified 11/13/23 11:25 Uncoded FOLLOW-UP Latex, Natural Rubber Allergy Rash Verified 11/13/23 11:25 Family History Sister PCOS (polycystic ovarian syndrome) Surgical History History of wisdom tooth extraction History of tonsillectomy History of esophagogastroduodenoscopy (EGD) Hx of colonoscopy Hx of myringotomy H/O tympanostomy Social History Smoking Status: Never smoker alcohol intake: never Review of Systems (Anesthesia) ROS Narrative System reviewed and no additional complaints, except as documented.
--- NOTE | 2023-11-13 12:27 | PCM.HP.BLA ---
History and Physical Date of Admission: 11/13/23 WILIAM EDWARD, is a 23 F who presents to the office today for follow up. PMH anxiety/depression, bulimia, self-cutting, asthma, eczema, allergies ? GI 2017 established with rectal bleeding for two years; diagnosed with Crohn?s disease. Discussion of Humira at one point. Colonoscopy 08.08.16?proctitis with aphthous-like ulcerations and changes consistent with Crohn?s disease; severe inflammation and friability of IC valve suggestive of Crohn?s ileitis though scope tip could not traverse TI. Pathology notes lymphoid follicle formation and mild active chronic colitis with focal cryptitis in rectum and IC valve. ?Mesalamine?attempted and ineffective Apriso 1.5g/day?ineffective. ?CT abd/pel 04.28.20?known Crohn?s disease with inflammation of distal ileum with pseudo-obstruction. ? PCP OV 06.26.22 for f/u for chronic issues and concern of fatigue. ?Biochemical [facility] 06.26.22?CBC, CMP, LFT, TSH, T3, T4, Vit B12, Vit D25 without pertinent abnormality. *BGI established 09.13.22 Crohn?s diagnosed age 15 following presentation of GIB and colonoscopy performed. Started mesalamine for several years with continual increase of dosage. Experienced abdominal pain and evaluation suspicious for SBO and medication changed to Humira for the last 1-2 years. She is now having abdominal pain/discomfort with increased loose stooling and recent presentation of blood and intermittent nausea daily. Recent presentation to an ED for abdominal pain and was told KUB looked like constipation. No history of SBO. ?MREnterography 6.5.23?wall thickening of TI with hyperenhancement; several small bowel loops with hyperenhancement. ?Gastric emptying study 6.7.23?150.54minutes (12-56) Contact [address] Almanzar with MREnterography results, educated need for cigarette and marijuana cessation. Recommend Stelara start, will return call with decision. Contact 6.29.23 from mother with concern regarding psychological health and possible eating disorder; referred to psychiatry services. ?EGD and colonoscopy 10.24.22?EGD vocal cord inflammation; clear fluid in stomach; gastritis. ? 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 Change therapy to Stelara. Current weight 126lbs OV 07.02.23 ? ESR/CRP Calp/lact? serum/ab? TB 09.13.22 3/<2.9?? 34/neg? --/--? neg? LDH, GAME, ENIO, NIK comp (SKI LIFT MECH[employer]IC H1.1), celiac, AMA, PR3 WNL? Stool elastase, EP, c.difficile, blood, O/P, giardia WNL ? t.bili H1.5 AST L14-ALT 19-AP73, RAST low/equivocal egg, cow?s milk, apANCA H1:160, MPO H1188, Varicella titer L, IBD (apANCA, Aftab) 12.01.22?Stelara infusion ? 6.21 Needs rheumatology discussion OV 07.02.23- Pt continues with Stelara. Has had 3 injections now. Still has intermittent abdominal pain and nausea. BM are normal twice a day. Is concerned about her immune system. Feels like the Stelara has helped her GI sx but is having alot more illness. ? ? Exam Const General: cooperative and comfortable Nutritional Appearance: average body habitus and well nourished [facility] Head: normal to inspection Ears: hearing grossly normal bilaterally Nose: external nose normal Face and sinus: normal facial exam Mouth: oral mucosae normal Throat: posterior oropharynx normal Eyes General: appearance normal, both eyes and all related structures Neck Neck: normal visual inspection Chest Chest palpation & inspection: normal inspection of the chest and normal palpation of entire chest wall Resp Effort & Inspection: normal respiratory effort Auscultation: Bilateral: Clear to Auscultation Cardio Palpation: normal PMI Rate: regular rate Rhythm: regular rhythm GI Inspection: normal to inspection Auscultation: normal bowel sounds Percussion: normal to percussion Palpation: no hepatosplenomegaly Skin General: no rashes or lesions noted Neuro General: patient alert Extrem General: normal to inspection Psych Affect: normal affect Quality Reporting Tobacco Screening ([facility] 138) Smoking Status: Never smoker Assessment and Plan Assessment and Plan (1) Crohn's disease: Status: Acute Qualifiers: Digestive disease complication type: unspecified complication Gastrointestinal tract location: small intestine Qualified Code(s): K50.019 - Crohn's disease of small intestine with unspecified complications Plan: 22-year-old with history of ileocolonic Crohn's status post small bowel obstruction with NG tube decompression on Humira. Recommend to check PPD, hepatitis B serologies. Also recommend to check NIK, ANCA, QuantiFERON gold, Stelara levels and Stelara antibodies, MR enterography. She has moderate to severe Crohn's disease of the small bowel with stricture status post dilation on colonoscopy. She also started struggles with eating disorder and gastroparesis which could be contributing to a lot of her upper GI symptoms. We will not know until she is therapeutic with Stelara. (2) Gastroparesis: Status: Acute Plan: Moderate to severe gastroparesis with a gastric emptying time of 164 minutes. Was suggested she go on a gastroparesis diet and not a Crohn's diet at this time. I will get her some documentation for gastroparesis and how to eat with severe gastroparesis. We will also get labs for autoimmune gastritis. Orders: Orders Calprotectin, Stool Today K50.90 - Crohn's disease, unspecified, without complications CBC W/Diff, Automated Today K50.90 - Crohn's disease, unspecified, without complications Comprehensive Metabolic Profil Today K50. - Crohn's disease, unspecified, without complications CRP Today K50. - Crohn's disease, unspecified, without complications Erythrocyte Sed Rate Today K50. - Crohn's disease, unspecified, without complications LDH Today K50. - Crohn's disease, unspecified, without complications Miscellaneous Lab Procedure Today K50. - Crohn's disease, unspecified, without complications Quantiferon TB-Gold+ Today K50. - Crohn's disease, unspecified, without complications Stool Lactoferrin/WBC Today K50. - Crohn's disease, unspecified, without complications, K58.9 - Irritable bowel syndrome without diarrhea IBD Expanded Profile Today K50. - Crohn's disease, unspecified, without complications Chromogranin A Today K50. - Crohn's disease, unspecified, without complications Gastrin, Serum Today K50. - Crohn's disease, unspecified, without complications Vitamin B12 Today K50. - Crohn's disease, unspecified, without complications Folates, (Folic Acid) Today K50 - Crohn's disease, unspecified, without complications Anti-Parietal Cell AB, QN Today K5 - Crohn's disease, unspecified, without complications Intrinsic Factor Ab Today K50. - Crohn's disease, unspecified, without complications ANCA Today K50. - Crohn's disease, unspecified, without complications NIK Comprehensive Panel Today K50. - Crohn's disease, unspecified, without complications Allergen, Food Profile 14 Today K50. - Crohn's disease, unspecified, without complications I have examined the patient and the H&P has been reviewed. There are no clinical changes since date of exam.
--- NOTE | 2023-11-13 12:30 | COLBX_PTH ---
PATIENT: WILIAM EDWARD LOC: EN U#:[id number] AGE/SX: 23/ ROOM: RE11/13/[address]: Dr. Otf Almanzar DO : 2000 BED: DIS: 11/13/2023 SPEC #: [id number] RECD: 11/13/23 17:56 STATUS: [place] REWayne #: [id number] MARYCRUZ: 11/13/23 12:[address]: Otf Almanzar DEPT: SURGICAL PATHOLOGY RECD BY: Margi Us ENTERED: 11/14/23 07:46 SP TYPE: COLON BX OTHR DR: Dr. Mey Faustin MD Tissues: Ileum, NOS Procedures: Surgery Specimen Level IV HEADER OPERATION: Colonoscopy with biopsies and balloon dilatation PRE-OP DIAGNOSIS: Crohn's disease, gastroparesis TISSUE SUBMITTED: Terminal ileum biopsy MICROSCOPIC DIAGNOSIS Terminal ileum, biopsy: Fragments of smooth muscle tissue. No pathologic diagnosis. See comment. TROY/ 11/15/2023 COMMENT These fragments may represent fragments of benign muscularis mucosa. Only, a minute fragment of unremarkable glandular epithelium is noted in the specimen. Correlation with clinical, endoscopic findings and appropriate follow up are necessary. MICROSCOPIC DESCRIPTION Slides are reviewed. GROSS DESCRIPTION Received in fixative is one container labeled with the patient's name and designated Terminal ileum biopsy. The specimen consists of two irregular fragments of light turner soft tissue that in aggregate measure 0.4 x 0.3 x 0.1 cm. The specimen is totally submitted in one cassette. / 11/14/2023 TC:4 CPT:47593
--- NOTE | 2023-11-13 13:24 | OP.CCLET_ITS ---
11/13/2023 Mey Faustin [address] [place] [address] Re : Colonoscopy procedure for Yael Agarwal Dear Dr. Faustin This procedure was performed on Monday, November 13, 2023. My impressions and recommendations are as follows: Impressions : - The entire examined colon is normal. - Inflammatory bowel disease. Inflammation was found. This was moderate in severity. Biopsied. - Stricture in the terminal ileum. Dilated. Recommendations : - Discharge patient to home. - Resume previous diet. - Continue present medications. - Await pathology results. - Repeat colonoscopy in 1 year for surveillance. My findings are described in the full procedure note, which is enclosed. If I can be of further assistance, please feel free to contact me at . Sincerely, Otf Friend, 11/13/2023 1:24:07 PM This report has been signed electronically.
--- NOTE | 2023-11-13 13:24 | OP.COLON_ITS ---
Patient Name: Yael Agarwal Procedure Date: 11/13/2023 12:50 PM Date of : 2000 Age: 23 Procedure: Colonoscopy Indications: Crohn's disease of the small bowel, Disease activity assessment of Crohn's disease of the small bowel, Assess therapeutic response to therapy of Crohn's disease of the small bowel Providers: Otf Almanzar DO Referring MD: Mey Faustin Medicines: Monitored Anesthesia Care Patient Profile: This is a 23 year old female. Refer to note in patient chart for documentation of history and physical. Last Colonoscopy: within the past 3 years. Complications: No immediate complications. Procedure: Pre-Anesthesia Assessment: - Prior to the procedure, a History and Physical was performed, and patient medications and allergies were reviewed. The patient is competent. The risks and benefits of the procedure and the sedation options and risks were discussed with the patient. All questions were answered and informed consent was obtained. Patient identification and proposed procedure were verified by the physician in the pre-procedure area. Mental Status Examination: alert and oriented. Airway Examination: normal oropharyngeal airway and neck mobility. Respiratory Examination: clear to auscultation. CV Examination: normal. Prophylactic Antibiotics: The patient does not require prophylactic antibiotics. Prior Anticoagulants: The patient has taken no anticoagulant or antiplatelet agents except for NSAID medication. ASA Grade Assessment: II - A patient with mild systemic disease. After reviewing the risks and benefits, the patient was deemed in satisfactory condition to undergo the procedure. The anesthesia plan was to use monitored anesthesia care (MAC). Immediately prior to administration of medications, the patient was re-assessed for adequacy to receive sedatives. The heart rate, respiratory rate, oxygen saturations, blood pressure, adequacy of pulmonary ventilation, and response to care were monitored throughout the procedure. The physical status of the patient was re-assessed after the procedure. After I obtained informed consent, the scope was passed under direct vision. Throughout the procedure, the patient's blood pressure, pulse, and oxygen saturations were monitored continuously. The Colonoscope was introduced through the anus and advanced to the terminal ileum. The colonoscopy was performed without difficulty. The patient tolerated the procedure well. The quality of the bowel preparation was adequate. The terminal ileum, ileocecal valve, appendiceal orifice, and rectum were photographed. Scope In: 1:01:10 PM Scope Withdrawal Time 0 hours 15 minutes 47 seconds Scope Out: 1:19:09 PM Total Procedure Duration Time 0 hours 17 minutes 59 seconds Findings: The perianal and digital rectal examinations were normal. The colon (entire examined portion) appeared normal. Localized inflammation characterized by erosions, erythema, scarring and aphthous ulcerations was found in the terminal ileum. The inflammation was moderate in severity. Biopsies were taken with a cold forceps for histology. Verification of patient identification for the specimen was done. Estimated blood loss was minimal. The terminal ileum contained a benign-appearing, intrinsic severe stenosis measuring 5 cm (in length) that was traversed after dilation. A TTS dilator was passed through the scope. Dilation with a 15 mm colonic balloon dilator was performed. The dilation site was examined and showed moderate mucosal disruption. Impression: - The entire examined colon is normal. - Inflammatory bowel disease. Inflammation was found. This was moderate in severity. Biopsied. - Stricture in the terminal ileum. Dilated. Recommendation: - Discharge patient to home. - Resume previous diet. - Continue present medications. - Await pathology results. - Repeat colonoscopy in 1 year for surveillance. Procedure Code(s): --- Professional --- 58004, Colonoscopy, flexible; with transendoscopic balloon dilation 63975, Colonoscopy, flexible; with biopsy, single or multiple CPT copyright 2021 [employer]. All rights reserved. The codes documented in this report are preliminary and upon clinical reviewer review may be revised to meet current compliance requirements. Otf Almanzar DO 11/13/2023 1:24:07 PM This report has been signed electronically. Number of Addenda: 0 Note Initiated On: 11/13/2023 12:50 PM
--- NOTE | 2023-11-13 13:25 | PCM.POST.ANE ---
Anesthesia: Postop Eval I Current Vital Signs Temperature: 97.5 F Pulse Rate: 84 Blood Pressure: 109/69 Respiratory Rate: 18 Pulse Ox: 100 Oxygen Delivery Method: Room Air Assessment Airway patent: Yes Spontaneous unlabored respirations: Yes Mental status: Asleep nausea: No Vomiting: No Anesthesia Complication: No Fluid Hydration Crystalloid volume administer (ml): 600 Total IV fluid infused: 600 Progress Note Anesthesia document: Postop Eval 1 completed: Yes
--- NOTE | 2023-11-13 16:59 | PCM.POSTANE2 ---
Anesthesia Postop Eval I Sum Postop Eval Completion status Anesthesia document: Postop Eval 1 completed: Yes Anesthesia Postop Eval I Summary Anesthesia Postop Eval I Summary: Anesthesia Postop Eval I: Assessment Summary Airway patent Yes 11/13/23 13:27 [email or web address] Spontaneous unlabored Yes 11/13/23 13:27 [email or web address] respirations Mental status Asleep 11/13/23 13:27 [email or web address] nausea No 11/13/23 13:27 [email or web address] Vomiting No 11/13/23 13:27 [email or web address] Anesthesia Postop Eval I: Fluid Summary Crystalloid volume administer 600 11/13/23 13:27 [email or web address] (ml) Colloids volume administered ( ml) Blood Product volume administered (ml) Total IV fluid infused 600 11/13/23 13:27 [email or web address] Anesthesia Postop Eval I: Summary Notes Anesthesia Complication No 11/13/23 13:27 [email or web address] Anesthesia Complication Comment: Post-operative progress note Anesthesia: Postop Eval II Evaluation Mental status: Awake and Calm Pain Level: 0 nausea: No Vomiting: No Complications Anesthesia Complication: No
== END 2023-11-13 14:18 | disposition home or self-care (01) ==
LOC: EN 11:11 → AC 11:15
PROVIDERS: Anesthesiology; PCP Internal Medicine; Referring Provider Internal Medicine; Visit Provider Internal Medicine Gastroenterology
PROC: 0DJD8ZZ Inspection of Lower Intestinal Tract, Via Natural or Artificial Opening Endoscopic (ICD-10-PCS; CPT 45378; principal; 2023-11-13 12:25)
DX: K50.019 Crohn's disease of small intestine with unspecified complications (principal); K56.699 Other intestinal obstruction unspecified as to partial versus complete obstruction; K31.84 Gastroparesis
CPT/HCPCS: 43249; 45380; 81025; 88305; J7120; J2405

== ENCOUNTER → 2023-12-20 | Outpatient (CLI) | payer OTHER, SELFPAY ==
--- NOTE | 2023-12-20 12:29 | NM_ITS ---
CLINICAL: 23-year-old female with history of clinical gastroparesis. SEMI-SOLID PHASE 99m Tc SULFUR COLLOID GASTRIC EMPTYING STUDY COMPARISON: Previous gastric emptying study dated 10/04/2022 FINDINGS: The patient was administered 1.1 mCi of 99m Tc sulfur colloid mixed with oatmeal and consumed per os. Image acquisitions in the anterior-posterior projections were obtained for 60 minutes. There is prompt visualization of the stomach. There is no gastroesophageal reflux identified. The T ? linear fit was calculated to be 56.45 minutes, (Normal: 12-56 minutes) compared to 150.54 minutes on the examination dated 10/04/2022. NM/Gastric Emptying Study IMPRESSION: 1. UPPER LIMITS OF NORMAL 99m Tc sulfur colloid semi-solid phase (oatmeal) gastric emptying imaging examination. A. There is upper limits of normal and preserved semi-solid phase gastric emptying compared to normal controls with maintained first order kinetics throughout all components of the examination. (Azar et al, J Nucl Med Tech 38: 186, 2010). B. Overall compared to the examination dated 12/20/2023, there is interim improvement of semisolid gastric phase emptying as defined above. Electronically Signed: Daniel Gold DO at 11:45 EDT ,
== END | disposition home or self-care (01) ==
LOC: NM 12:27
PROVIDERS: PCP Internal Medicine; Referring Provider Internal Medicine Gastroenterology; Visit Provider Internal Medicine Gastroenterology
DX: K31.84 Gastroparesis (principal); K50.019 Crohn's disease of small intestine with unspecified complications
CPT/HCPCS: 78264; A9541

== ENCOUNTER 2024-02-19 13:03 | Outpatient (CLI) | payer BC, SELFPAY ==
[2024-02-19 13:21] VITALS: BP 98/65; PULSE 64; RESP 16; TEMP 36.7; O2SAT 100; BMI 23.3
[2024-02-19] MEDS: 0.9% NaCl Peripheral Flush Adult/Peds IV (13:44)
[2024-02-19] MEDS: 0.9% NaCl IVPB Med Flush (250 mL) 15 ML IV (13:45)
[2024-02-19] MEDS: Ferric Derisomaltose (Monoferric) 1,000 MG in 0.9% NaCl 100 ML 330 MG IV (13:50)
[2024-02-19 14:23] VITALS: BP 101/67; PULSE 64
== END 2024-02-19 23:59 | disposition home or self-care (01) ==
PROVIDERS: PCP Internal Medicine
DX: D50.9 Iron deficiency anemia, unspecified (principal)
CPT/HCPCS: 96365; J1437; J7050; A4216